=== PATIENT | male | born 1950 | race Caucasian/White ===

== ENCOUNTER → 2021-06-25 | Outpatient (CLI) | payer MEDICARE ==
[2021-06-25 14:52] LABS: Partial Thromboplastin Time 27.4 sec (22.0-30.0); Prothrombin Time 11.3 sec (9.0-12.0)
[2021-06-25 14:53] LABS: Amorphous Sediment,Urine Few /hpf; Appearance,Urine Cloudy (Clear); Bilirubin,Urine Negative (Negative); Blood,Urine Negative (Negative); Color,Urine Yellow; Glucose,Urine (UA) Negative (Negative); Ketones,Urine Negative (Negative); Leukocyte Esterase,Urine Negative (Negative); Mucus,Urine Rare /hpf; Nitrite,Urine Negative (Negative); PH, Urine 5.5 (5.0-8.0); Protein,Urine Trace (Negative); RBC,Urine 2 /hpf (0-5); Specific Gravity,Urine 1.018 (1.001-1.035); Urobilinogen,Urine <2.0 mg/dL (<2.0); WBC,Urine 3 /hpf (0-5)
[2021-06-25 17:56] LABS: HCT 48.6 % (39.6-50.0); HGB 15.7 g/dL (13.0-17.0); MCH 29.5 pg (27.0-32.0); MCHC 32.3 g/dL (32.0-37.0); MCV 91.2 fL (80.0-97.0); Mean Platelet Volume 11.1 fL (9.5-12.2); Platelet Count 191 X 10*3/uL (140-440); RBC 5.33 X 10*6/uL (4.40-5.60); RDW 13.2 % (11.5-14.5); WBC 7.49 X 10*3/uL (4.50-10.00)
[2021-06-25 18:06] LABS: African American GFR (CKD) 46.7 (60.0-200.0); Albumin 4.1 g/dL (3.8-4.9); Albumin/Globulin Ratio 1.52 (1.60-3.17); Anion Gap 11.5 mmol/L (10.00-18.00); BUN/Creat Ratio 10.29 Ratio (12.00-20.00); Blood Urea Nitrogen 17.5 mg/dL (9.0-27.0); Calcium 8.8 mg/dL (8.7-10.3); Carbon Dioxide 22.5 mmol/L (20.0-27.5); Globulin 2.7 g/dL (1.6-3.3); Non-African American GFR(CKD) 40.3 (60.0-200.0); Potassium 4.3 mmol/L (3.5-5.5); Total Bilirubin 0.6 mg/dL (0.30-1.20); Total Protein 6.8 g/dL (6.2-8.2)
== END | disposition home or self-care (01) ==
LOC: LABPAT 14:08
PROVIDERS: ATTEND Orthopaedic Surgery
DX: Z01.818 Encounter for other preprocedural examination (principal); I49.3 Ventricular premature depolarization; R94.31 Abnormal electrocardiogram [ECG] [EKG]
CPT/HCPCS: 80053; 81001; 85027; 85610; 85730; 87070; 93005

== ENCOUNTER → 2021-07-02 | Outpatient (CLI) | payer MEDICARE | END | disposition home or self-care (01) | LOC: LABWHC1 10:52 | PROVIDERS: ATTEND Orthopaedic Surgery | DX: Z96.641 Presence of right artificial hip joint (principal); M25.551 Pain in right hip; T84.84XD Pain due to internal orthopedic prosthetic devices, implants and grafts, subsequent encounter; M17.11 Unilateral primary osteoarthritis, right knee; Y82.9 Unspecified medical devices associated with adverse incidents | CPT/HCPCS: 36415; 83036 ==

== ENCOUNTER 2021-07-03 06:38 | Inpatient (IN) | payer MEDICARE ==
[2021-06-28 10:09] VITALS: BMI 29.0
[~2021-07-03 06:38] MED LIST: ACETAMINOPHEN TAB 500 MG TAB PO PRN; DEXAMETHASONE SOD PHOSPHATE 10 MG/ML 1 ML VIAL IV PRN; DOCUSATE 100 MG CAP PO PRN; FAMOTIDINE 20 MG/2 ML VIAL IVP PRN; KETOROLAC 15 MG/ML 1 ML VIAL IVP PRN; ONDANSETRON 4 MG/2 ML VIAL IVP PRN; TRANEXAMIC ACID 1,000 MG in SODIUM CHLORIDE 0.9% 100 ML IVPB PRN; VANCOMYCIN 1,000 MG in SODIUM CHLORIDE 0.9% 250 ML IVPB PRN; oxyCODONE ER 10 MG TAB.ER.12H PO PRN
[2021-07-03] MEDS ORDERED: ONDANSETRON 4 MG/2 ML VIAL IVP ONE (06:49)
[2021-07-03] MEDS ORDERED: LIDOCAINE 1% (10MG/ML) FOR IV START INTRADERMA PRN (06:49)
[2021-07-03] MEDS ORDERED: DEXAMETHASONE SOD PHOSPHATE 4 MG/ML 1 ML VIAL IV ONE (06:49)
[2021-07-03] MEDS ORDERED: HYDROmorphone 0.5 MG/0.5 ML SYRINGE IVP PRN ×3 (07:00→11:06)
[2021-07-03] MEDS ORDERED: TRANEXAMIC ACID 1,000 MG in SODIUM CHLORIDE 0.9% 100 ML IVPB ONE (07:26)
[2021-07-03] MEDS: LACTATED RINGERS 1,000 ML IV SCH (07:41)
[2021-07-03 07:47] LABS: Glucose,Whole Blood 120 mg/dL (75-99)
[2021-07-03] MEDS ORDERED: ROCURONIUM 10 MG/ML (5 ML VIAL) IV ONE (08:28)
[2021-07-03] MEDS ORDERED: ePHEDrine 50 MG/ML 1 ML VIAL ONE (08:28)
[2021-07-03] MEDS ORDERED: SUCCINYLCHOLINE CHLORIDE 100 MG/5 ML SYR IV ONE (08:28)
[2021-07-03] MEDS ORDERED: NEOSTIGMINE 1 MG/ML 10 ML VIAL ONE (08:28)
[2021-07-03] MEDS ORDERED: HEPARIN SODIUM,PORCINE 10,000 UNIT/ML 1 ML VIAL ONE (08:28)
[2021-07-03] MEDS ORDERED: SODIUM CHLORIDE 0.9% IRRIG 1,000 ML BTL IRRIGATION ONE (08:28)
[2021-07-03] MEDS ORDERED: PROPOFOL 10 MG/ML 20 ML VIAL IV ONE (08:28)
[2021-07-03] MEDS ORDERED: fentaNYL (PF) 50 MCG/ML 2 ML AMP ONE (08:28)
[2021-07-03] MEDS ORDERED: MIDAZOLAM 2 MG/2 ML VIAL ONE (08:28)
[2021-07-03] MEDS ORDERED: GLYCOPYRROLATE 0.2 MG/ML 2 ML VIAL ONE (08:28)
[2021-07-03] MEDS ORDERED: SODIUM CHLORIDE 0.9% 100 ML BAG ONE (08:28)
[2021-07-03] MEDS ORDERED: LIDOCAINE 1% INJ 10MG/ML (20 ML MDV) ONE (08:28)
[2021-07-03] MEDS ORDERED: TRANEXAMIC ACID 1,000 MG/10 ML VIAL ONE (08:28)
[2021-07-03] MEDS: ROPIVACAINE/EPI/CLONIDINE/KET 50 ML SYRINGE MISCELLANE PRN ×2 (09:17→10:14)
--- NOTE | 2021-07-03 10:37 | FL ---
Fluoroscopy HISTORY: Hip replacement 36 seconds fluoroscopy time supplied to the referring clinician. 7 intraoperative C-arm images docum ent the procedure. See dictated report from orthopedic surgery.
[2021-07-03] MEDS ORDERED: LACTATED RINGERS 1,000 ML IV ONE (11:01)
[2021-07-03] MEDS ORDERED: NALOXONE 0.4 MG/ML 1 ML VIAL IV PRN (11:06)
[2021-07-03] MEDS ORDERED: hydrOXYzine pamoate 25 MG CAP PO PRN (11:06)
[2021-07-03] MEDS ORDERED: HYDROcodone/APAP 5-325MG 1 EACH TAB PO PRN ×2 (11:06)
[2021-07-03] MEDS ORDERED: ONDANSETRON 4 MG/2 ML VIAL IVP PRN (11:06)
[2021-07-03] MEDS ORDERED: HYDROmorphone 0.2 MG/1 ML SYRINGE IVP PRN (11:06)
--- NOTE | 2021-07-03 11:11 | P.OP ---
Date of Procedure: 07/03/21 Preoperative Diagnosis: 1. Painful right hip hemiarthroplasty 2. Coronary artery disease 3. Type 2 diabetes 4. Chronic renal insufficiency Postoperative Diagnosis: 1. Painful right hip hemiarthroplasty with progressive acetabular degenerative changes 2. Coronary artery disease 3. Type 2 diabetes 4. Chronic renal insufficiency Procedure(s) Performed: 1. Conversion of right hip hemiarthroplasty to total hip arthroplasty 2. Application of negative pressure incisional wound VAC, right hip 15 cm Implants: 1. [place] Trident II multi hole revision cup, 52-mm 2. MDM 42 OD, 22 ID +0 neck Anesthesia: GETA Surgeon: Diaz Heard Heeler #1: Garrett Pham Estimated Blood Loss (ml): 300 IV fluids (ml): 1,200 Pathology: none sent Condition: stable Disposition: PACU Indications for Procedure: The patient is a very pleasant 70-year-old male with several chronic well- controlled medical problems including coronary artery disease, chronic renal insufficiency, and type 2 diabetes who sustained a displaced right femoral neck fracture in 2017 that was managed an outside hospital with a hemiarthroplasty. The patient has had progressively worsening groin and buttock pain since that time. He is very active and finds that his groin and buttock pain limits his mobility. Clinically he had significant pain with passive range of motion of his hip and x-rays showed degenerative changes within the acetabulum from erosion of the hemiarthroplasty implant. He also has symptomatic knee arthritis. We discussed continued nonsurgical treatment versus surgery. The patient would like to proceed with a conversion of his hemiarthroplasty to total hip replacement. The stem appears to be well fixed and well aligned so my recommendation was to leave the stem and place and place a socket. The patient was seen and cleared for surgery. His hemoglobin A1c was less than 7. I had a long discussion with the patient in the office on the potential risks and complications of an elective total hip replacement through a direct anterior approach. Risks discussed include, but are certainly not limited to, risks from anesthesia, superficial infection requiring local wound care or antibiotics, nadeen p damon-prosthetic joint infection and the treatment required to eradicate infection, intraoperative fracture, postoperative periprosthetic fracture, damage to local blood vessels or nerves particularly the lateral femoral cutaneous nerve, delayed wound healing requiring local wound care or possibly surgical debridement, hip dislocation, leg length discrepancy, soft tissue irritation around the total hip implant such as iliopsoas tendinitis or trochanteric bursitis, wear and osteolysis from the implants, squeaking or audible noises, groin pain, thigh pain, heterotopic ossification, stiffness, a septic loosening of the implants, dissatisfaction with surgical outcome, need for revision surgery, DVT, PE, swelling of the operative extremity, acute coronary event, stroke, failure to thrive, and possibly loss of life or limb. The patient understands that while these are the most common complications after an elective hip replacement there are certainly other less common complications possible. They were given ample time to ask questions regarding the potential complications of a hip replacement. Following our discussion the patient provided their verbal and written consent to go forward with an elective total hip replacement. The patient has he is at a higher risk of having a complication due to his medical issues and this being a revision. He provided verbal and written to go forward with revision surgery acknowledging the previously mentioned risks and other less common risks. Operative Findings: There is no sign of deep infection. There is severe degenerative changes within the acetabulum with complete loss of articular cartilage. Description of Procedure: The patient was identified in the preoperative holding area and the correct hip was marked with my initials. I reviewed the procedure and consent with the patient. All of their questions were answered. The patient was then brought back into the operating room by anesthesia. While on the [facility] anesthesia was administered by the anesthesia team. Preoperative antibiotics and tranexamic acid were also given. After the patient was under anesthesia I examined their ankles to determine their preoperative leg length discrepancy. The skin over the anterior aspect of the hip was shaved to remove hair over the site of planned incision. Both feet and ankles were padded with webril and boots for the [place] were applied. The patient was then carefully transferred onto the [place] table. A perineal post was immediately placed. The arms were placed on arm hol ders and were well-padded. Both boots were secured to the spars on the [place] table. The patient was positioned so that the pelvis was centered over the post. Nonsterile drapes were applied. A timeout was performed identifying the correct patient, operative extremity, and procedure. At this point fluoroscopy was brought in to take preoperative images of the pelvis and operative hip. Using the standing AP pelvis from the office as a template, a comparable image was obtained with fluoroscopy. A metallic bar was used to create a bi-ischial line for use as a reference to leg length adjustments during the procedure. Global offset was also measured on both the operative and nonoperative leg. Fluoroscopy was then brought out and a pre-scrub using a chlorhexidine scrub brush was performed. The operative limb was then prepped and draped in the standard sterile fashion. An anterior longitudinal incision was made lateral and distal to the ASIS. The skin and subcutaneous tissues were incised sharply. The underlying tensor fascia was identified and incised in its midportion. The fascia was dissected free from the underlying muscle and the muscle belly was retracted. A blunt tipped cobra retractor was placed over the superior neck under the muscle fibers of the gluteus minimus. The deep enveloping fascia of the tensor was incised. The anterior leash of vessels were then identified and cauterized. The fascia between the rectus and the capsule was then incised and the pre-capsular fat was excised. A second Cobra was placed inferior to the neck. The interval between the rectus and iliocapsularis and the hip capsule was developed and a retractor was placed carefully over the anterior rim of the acetabulum. A T-shaped anterior capsulotomy was performed. There was no sign of purulence or infection. Longitudinal traction was applied to the table and the femoral head was knocked off the trunnion with a bone tamp and mallet. Traction was released and the prosthetic femoral head was removed. Retractors were placed circumferentially exposing the acetabulum. We then circumferentially debrided the acetabulum free of labrum and osteophytes. The pulvinar was removed to fully visualize the cotyloid fossa. The acetabulum appeared severely arthritic. We then sequentially reamed to achieve peripheral fit and excellent bleeding subchondral bone. The socket was thoroughly irrigated. The acetabular component was impacted into the appropriate position using fluoroscopy to guide version, inclination, and depth of insertion taking care to have a comparable image of the AP pelvis to the standing image taken in the office. An excellent press-fit was achieved and final position was confirmed using fluoroscopy. The press fit was augmented with bony cancellus dome screws. The liner was then impacted into the socket. Attention was then turned to the femur. The femur was exposed with minimal capsular release and a trial head for dual mobility construct was applied and the hip was atraumatically reduced under direct visualization. External rotation to 90 was performed to assess stability. Fluoroscopy was brought in. An AP of the pelvis was then obtained and matched to the preoperative image taken. A bi-ischial bar was then placed and measurements were taken to assess changes in length and offset. The hip was then carefully dislocated, the proximal femur was exposed, and the trial implants were removed. The trunnion was cleansed and the final head was tapped into place to engage the [place] taper. The acetabulum was irrigated and visualized to be free of debris. The hip was carefully reduced. Stability was checked clinically with external rotation to 90 and there was no evidence of instability. Final fluoroscopic images were taken. The wound was then thoroughly irrigated and soaked with a dilute Betadine rinse for 3 minutes. 3 L of sterile saline was irrigated through the wound using pulsatile lavage. Local anesthetic cocktail was injected into the soft tissues around the surgical field. A deep drain was placed. The wound was then closed in layers. A sterile Prevena wound VAC dressing was placed over the surgical incision and drain site due to this being a revision in the patient having chronic medical issues including chronic renal insufficiency and diabetes. The drapes were taken down and the patient was carefully transferred off of the [place] table. Following removal of the boots the leg lengths felt acceptable. The patient was then taken to recovery room having tolerated the procedure well. Garrett Pham PA-C was required as a skilled office manager executive assistant for patient positioning, surgical exposure, retraction, placement of implants, and closure of the surgical wound. PLAN: The patient can weight-bear as tolerated on the operative extremity. 2 doses of postoperative antibiotics in 2 weeks of oral doxycycline for prophylaxis given this being a revision procedure. DVT prophylaxis with aspirin 81 mg twice a day based on preoperative risk stratification and he can resume his eloquence tomorrow. Physical therapy for gait training. Discontinue drain postoperative day #1 if output is less than 100 mL per shift.
[2021-07-03 11:37] LABS: Glucose,Whole Blood 167 mg/dL (75-99)
--- NOTE | 2021-07-03 13:54 | P.CONS ---
History of Present Illness - Reason for Consult Consult date: 07/03/21 Medical management - Chief Complaint Status post right hip hemiarthroplasty - History of Present Illness Patient is a 70-year-old male with a known history of coronary artery disease status post CABG, mitral valve replacement, hypertension, diabetes type 2 currently diet controlled, hyperlipidemia, osteoarthritis, obstructive sleep apnea triple-vessel, history of renal stones, gastric bypass and previous history of smoking was admitted to the hospital for elective Rt hip hemiarthroplasty. Patient underwent surgery on 07/03/2021. Tolerated the procedure very well. Postoperatively patient's blood pressure went down to 109/55. Currently saturating well on room air. Denies any complaints of dizziness or lightheadedness. No chest pain or shortness breath. Left hip surgical site with wound VAC and drain.. Denies any complaints of fever or chills. No nausea vomiting abdominal pain or diarrhea. COVID-19 PCR not detected. Blood sugar is elevated this afternoon with level 235 Review of Systems Constitutional: Patient denies any fever or chills . No generalized weakness or weight loss. Abdomen: Patient denied nausea vomiting and diarrhea and abdominal pain. Cardiovascular: Patient denies any chest pain or short of breath no palpitations. Respiratory: patient denied any cough or sputum production. No shortness of breath Neurologic: Patient denied any numbness or tingling headache. Musculoskeletal: Patient denies any complaints of joint swelling or deformity. Skin: Negative Psychiatric: Negative Endocrine: No heat or cold intolerance. No recent weight gain. Genitourinary: No dysuria or hematuria. All other 14 point ROS negative except the above Past Medical History Past Medical History: Atrial Fibrillation, Coronary Artery Disease (CAD), Diabetes Mellitus, Hyperlipidemia, Hypertension, Osteoarthritis (OA), Renal Disease, Sleep Apnea/CPAP/BIPAP Additional Past Medical History / Comment(s): doesn't use CPAP, kidney stones, type 2 diabetic-diet controlled History of Any Multi-Drug Resistant Organisms: None Reported Past Surgical History: Bariatric Surgery, Cardiac Valve Replacement, Cholecystectomy, Coronary Bypass/CABG, Hernia Repair, Joint Replacement, Orthopedic Surgery Additional Past Surgical History / Comment(s): mitral valve replaced x2, triple bypass, left nephrostolithotomy & lithotripsy, right hip replaced, gastric bypass, right knee arthroscopies, colonoscopies Past Anesthesia/Blood Transfusion Reactions: No Reported Reaction Smoking Status: Former smoker - Past Family History Mother Family Medical History: No Reported History Medications and Allergies Home Medications Medication Instructions Recorded Confirmed Type Apixaban [Eliquis] 5 mg PO BID 06/28/21 07/03/21 History Aspirin [Adult Low Dose Aspirin EC] 81 mg PO DAILY 06/28/21 06/28/21 History Famotidine [Pepcid] 40 mg PO HS 06/28/21 06/28/21 History Ferrous Sulfate [Feosol] 325 mg PO DAILY 06/28/21 07/03/21 History L.acidoph,Paracasei, B.lactis 2 each PO DAILY 06/28/21 07/03/21 History [Probiotic] Metoprolol Tartrate [Lopressor] 50 mg PO BID 06/28/21 06/28/21 History [place]-3 Fatty Acids/Fish Oil [Fish 1 each PO DAILY 06/28/21 07/03/21 History Oil 1,000 mg Softgel] PARoxetine [Paxil] 20 mg PO HS 06/28/21 06/28/21 History Pyridostigmine [place] [Mestinon] 60 mg PO BID 06/28/21 06/28/21 History Rosuvastatin [Crestor] 20 mg PO HS 06/28/21 06/28/21 History amLODIPine [Norvasc] 5 mg PO HS 06/28/21 06/28/21 History Doxycycline Monohydrate 100 mg PO BID 14 Days #28 cap 07/03/21 Rx Allergies Allergy/AdvReac Type Severity Reaction Status Date / Time No Known Allergies Allergy Verified 06/28/21 09:21 Physical Exam Vitals: Vital Signs Temp Pulse Pulse Resp BP BP BP 07/03/21 13:15 80 16 118/57 07/03/21 13:00 80 16 102/54 07/03/21 12:30 82 16 109/55 07/03/21 12:00 85 16 121/69 07/03/21 11:45 88 16 124/61 07/03/21 11:30 92 16 150/65 07/03/21 11:15 92 16 141/67 07/03/21 11:14 97.3 F L 99 14 157/82 07/03/21 07:27 97.6 F 66 16 135/68 Pulse Ox 07/03/21 13:15 95 07/03/21 13:00 95 02/02/22 12:30 95 07/03/21 12:00 95 07/03/21 11:45 95 07/03/21 11:30 97 07/03/21 11:15 98 07/03/21 11:14 98 07/03/21 07:27 96 Intake and Output 07/02/21 07/03/21 07/03/21 22:59 06:59 14:59 Intake Total 1900 Output Total 300 Balance 1600 Intake: IV 1900 Output: Estimated Blood Loss 300 Other: Weight 89.9 kg PHYSICAL EXAMINATION: Patient is lying in the bed comfortably, no acute distress, awake alert and oriented.. HEENT: Normocephalic. Neck is supple. Pupils reactive. Nostrils clear. Oral cavity is moist. Neck reveals no JVD, carotid bruits, or thyromegaly. CHEST EXAMINATION: Trachea is central. Symmetrical expansion. Lung renee clear to auscultation and percussion. CARDIAC: Normal S1, S2 with no gallops. No murmurs ABDOMEN: Soft. Bowel sounds normal. No organomegaly. No abdominal bruits. Extremities: reveal no edema. No clubbing or cyanosis Neurologically awake, alert, oriented x3 with well-coordinated movements. No focal deficits noted Skin: No rash or skin lesions. Psychiatric: Cooperative. Nonsuicidal Musculoskeletal: No joint swelling or deformity. Right hip surgical site with wound VAC present. Results Labs: Abnormal Lab Results - Last 24 Hours (Table) 07/03/21 07/03/21 Range/Units 07:36 11:36 POC Glucose (mg/dL) 120 H 167 H (75-99) mg/dL Assessment and Plan Assessment: Status post right hemiarthroplasty postoperative day 0 Postoperative hypotension expected. Improved now. Hyperglycemia Diabetes type 2 diet controlled at home. Chronic kidney disease Coronary artery disease with history of CABG History of mitral valve replacement. Paroxysmal atrial fibrillation on anticoagulation with Eliquis Iron deficiency anemia Osteoarthritis Previous history of smoking History of renal stones and left nephrostolithotomy, lithotripsy. DVT prophylaxis Plan: Patient will be continued current pain medications, bowel regimen. Encourage incentive spirometry and ambulation. Blood pressure medications will be on hold today. Continue with aspirin and Eliquis once cleared by surgical team. Continue with home medications and follow-up closely. Follow-up CBC, BMP and A1c levels tomorrow. Further recommendations based on clinical course. Thank you for your consult. Time with Patient: Greater than 30
[2021-07-03 16:34] LABS: Glucose,Whole Blood 235 mg/dL (75-99)
[2021-07-03] MEDS: INSULIN ASPART (NovoLOG) 100 UNIT/ML VIAL SQ SCH ×2 (16:52→21:38)
[2021-07-03] MEDS ORDERED: FAMOTIDINE 20 MG TAB PO SCH (21:00)
[2021-07-03] MEDS ORDERED: SENNOSIDES-DOCUSATE SODIUM 1 EACH TAB PO SCH (21:00)
[2021-07-03] MEDS ORDERED: ATORVASTATIN 20 MG TAB PO SCH (21:00)
[2021-07-03] MEDS ORDERED: PARoxetine 20 MG TAB PO SCH (21:00)
[2021-07-03] MEDS ORDERED: MELATONIN 5 MG TABLET PO SCH (21:00)
[2021-07-03 21:18] LABS: Glucose,Whole Blood 224 mg/dL (75-99)
[2021-07-03] MEDS: METOPROLOL TARTRATE 50 MG TAB PO SCH (21:39)
[2021-07-03] MEDS: PYRIDOSTIGMINE 60 MG TAB PO SCH (21:44)
[2021-07-04 03:59] LABS: Basophils % (A) 0 %; Eosinophils # (A) 0.1 k/uL (0-0.7); Eosinophils % (A) 1 %; HCT 42.3 % (39.0-53.0); HGB 13.4 gm/dL (13.0-17.5); Lymphocytes # (A) 1.6 k/uL (1.0-4.8); Lymphocytes % (A) 11 %; MCH 30.5 pg (25.0-35.0); MCHC 31.7 g/dL (31.0-37.0); MCV 96.1 fL (80.0-100.0); Mean Platelet Volume 8.3; Monocytes % (A) 7 %; Neutrophils # (A) 11.6 k/uL (1.3-7.7); Neutrophils % (A) 80 %; Platelet Count 128 k/uL (150-450); RDW 13.3 % (11.5-15.5); WBC 14.5 k/uL (3.8-10.6)
[2021-07-04 04:12] LABS: African American GFR (CKD) 43 (>60 ml/min/1.73 sqM); Anion Gap 10 mmol/L; Blood Urea Nitrogen 25 mg/dL (9-20); Calcium 8.3 mg/dL (8.4-10.2); Carbon Dioxide 16 mmol/L (22-30); Chloride 109 mmol/L (98-107); Glucose 151 mg/dL (74-99); Non-African American GFR(CKD) 37 (>60 ml/min/1.73 sqM); Potassium 3.6 mmol/L (3.5-5.1); Sodium 135 mmol/L (137-145)
[2021-07-04 07:11] LABS: Glucose,Whole Blood 162 mg/dL (75-99)
[2021-07-04] MEDS: PYRIDOSTIGMINE 60 MG TAB PO SCH (07:49)
[2021-07-04] MEDS: METOPROLOL TARTRATE 50 MG TAB PO SCH (07:49)
[2021-07-04] MEDS: INSULIN ASPART (NovoLOG) 100 UNIT/ML VIAL SQ SCH ×2 (07:49→11:33)
[2021-07-04] MEDS: LACTATED RINGERS 1,000 ML IV SCH (08:33)
[2021-07-04] MEDS ORDERED: NON FORMULARY DRUG (Omega-3 Fatty Acids/Fish Oil [Fish Oil 1,000 Mg Softgel] 1 EACH Capsul PO SCH (09:00)
[2021-07-04] MEDS ORDERED: APIXABAN 5 MG TAB PO SCH (09:00)
[2021-07-04 09:03] VITALS: BP 115/59; PULSE 77; RESP 19; TEMP 97.8
[2021-07-04] MEDS ORDERED: HYDROmorphone 0.2 MG/1 ML SYRINGE IVP PRN (11:59)
[2021-07-04] MEDS ORDERED: HYDROmorphone 1 MG/ML 1 ML SYRINGE IVP PRN (11:59)
--- NOTE | 2021-07-04 12:00 | P.DS ---
Providers Date of admission: 07/03/21 06:38 Expected date of discharge: 07/04/21 Attending physician: Diaz Heard Consults: 07/03/21 11:06 Consult Physician Routine Consulting Provider: Anand Medley Consult Reason/Comments: medial management Do you want consulting provider notified?: Yes Primary care physician: Twila Marino MD Hospital Course: This is a 70-year-old male who has been followed in the office by Dr. Heard for right hip pain. Patient has known history of displaced right femoral neck fracture in 2017 that was treated at an outside hospital with a right hip hemiarthroplasty. Patient continued to experience pain in the right hip. After discussion and consideration patient elects to proceed with surgery. Patient underwent a conversion of right hip hemiarthroplasty to total hip arthroplasty on 07/03/[address] Heard. The patient is seen preoperatively by PCP Dr. Marino, and settlement technician Dr. Saucedo, and cleared for surgery. Patient is admitted to [facility] on 07/03/21 for conversion of right hip hemiarthroplasty to total hip arthroplasty. The procedures performed without complication or sequelae. The patient is doing well postoperatively. Labs and vital signs are stable on day of discharge. Patient is seen and examined bedside this morning. He states he is having no pain in the right hip, and his hip feels better than before surgery. He did well with physical therapy. He is ambulating with a walker with minimal assistance. Per nursing, his drain output is 80mL per shift. Patient is doing well and has no complaints. He denies chest pain, shortness of breath, nausea, vomiting, numbness or tingling of the right lower extremity. He is comfortable being discharged home today. On examination, patient is sitting up in bed in no apparent distress. He is alert and orientated x3. On inspection of the right hip, there is a Prevena wound vac in place which appears to have a good seal at this time. There is mild swelling of the thigh, the thigh is soft and compressible. Hemovac drain in place. Motor and sensory function intact right lower extremity. Right lower extremity is warm and well perfused with brisk capillary refill distally. Calf is soft and non-tender to palpation. Hemovac drain was removed bedside this morning and a dressing was applied over the drain site. Patient is discharged to home with home health services in good condition, pending medical clearance today. He will follow-up in the office in one week with Dr. Heard. Please see [facility] rec for accurate list of discharge me dications. Plan - Discharge Summary Discharge Rx Participant: Yes New Discharge Prescriptions: New HYDROcodone/APAP 5-325MG [[place] 5-325] 1 tab PO Q6HR PRN 7 Days #28 tab PRN Reason: Pain Doxycycline Monohydrate 100 mg PO BID 14 Days #28 cap Docusate [Colace] 100 mg PO BID #60 capsule Omeprazole 40 mg PO DAILY 30 Days #30 cap No Action Famotidine [Pepcid] 40 mg PO HS PARoxetine [Paxil] 20 mg PO HS Metoprolol Tartrate [Lopressor] 50 mg PO BID Apixaban [Eliquis] 5 mg PO BID Pyridostigmine [place] [Mestinon] 60 mg PO BID [place]-3 Fatty Acids/Fish Oil [Fish Oil 1,000 mg Softgel] 1 each PO DAILY L.acidoph,Paracasei, B.lactis [Probiotic] 2 each PO DAILY Aspirin [Adult Low Dose Aspirin EC] 81 mg PO DAILY amLODIPine [Norvasc] 5 mg PO HS Ferrous Sulfate [Feosol] 325 mg PO DAILY Rosuvastatin [Crestor] 20 mg PO HS Discharge Medication List Apixaban [Eliquis] 5 mg PO BID 06/28/21 [History] Aspirin [Adult Low Dose Aspirin EC] 81 mg PO DAILY 06/28/21 [History] Famotidine [Pepcid] 40 mg PO HS 06/28/21 [History] Ferrous Sulfate [Feosol] 325 mg PO DAILY 06/28/21 [History] L.acidoph,Paracasei, B.lactis [Probiotic] 2 each PO DAILY 06/28/21 [History] Metoprolol Tartrate [Lopressor] 50 mg PO BID 06/28/21 [History] [place]-3 Fatty Acids/Fish Oil [Fish Oil 1,000 mg Softgel] 1 each PO DAILY 06/28/21 [History] PARoxetine [Paxil] 20 mg PO HS 06/28/21 [History] Pyridostigmine [place] [Mestinon] 60 mg PO BID 06/28/21 [History] Rosuvastatin [Crestor] 20 mg PO HS 06/28/21 [History] amLODIPine [Norvasc] 5 mg PO HS 06/28/21 [History] Doxycycline Monohydrate 100 mg PO BID 14 Days #28 cap 07/03/21 [Rx] Docusate [Colace] 100 mg PO BID #60 capsule 07/04/21 [Rx] HYDROcodone/APAP 5-325MG [[place] 5-325] 1 tab PO Q6HR PRN 7 Days #28 tab 07/04/21 [Rx] Omeprazole 40 mg PO DAILY 30 Days #30 cap 07/04/21 [Rx] Follow up Appointment(s)/Referral(s): [facility] [[facility]-STAFF] - As Needed ([facility] will call you to schedule the time for your in home physical therapy and nursing visits. Your first visit will be on 07/06/2021.) Diaz Heard MD [Medical Doctor] - 1 Week Activity/Diet/Wound Care/Special Instructions: Weight bear as tolerated on operative leg with a walker. Keep Prevena wound vac in place until follow-up in the office. Take pain medications as prescribed. Resume aspirin and Eliquis for DVT prophylaxis. Follow-up in the office with Dr. Heard in one week for wound vac removal and incision check. Call the office with any questions or concerns, Discharge Disposition: HOME WITH HOME HEALTH SERVICES
[2021-07-04 12:04] LABS: Glucose,Whole Blood 144 mg/dL (75-99)
== END 2021-07-04 14:41 | disposition home health service (06) | DRG 468 ==
LOC: 2ORMAIN 06:38 → 4SSUR 12:56 → EDSTATUS 13:00
PROVIDERS: ADMIT Orthopaedic Surgery; ATTEND Orthopaedic Surgery
PROC: 0SP90JZ Removal of Synthetic Substitute from Right Hip Joint, Open Approach (ICD-10-PCS; 2021-07-03)
PROC: 8E0YXBF Computer Assisted Procedure of Lower Extremity, With Fluoroscopy (ICD-10-PCS; 2021-07-03)
PROC: 2W1NX6Z Compression of Right Upper Leg using Pressure Dressing (ICD-10-PCS; 2021-07-03)
PROC: 0SR90JA Replacement of Right Hip Joint with Synthetic Substitute, Uncemented, Open Approach (ICD-10-PCS; principal; 2021-07-03 08:30)
DX: T84.84XA Pain due to internal orthopedic prosthetic devices, implants and grafts, initial encounter (principal); I12.9 Hypertensive chronic kidney disease with stage 1 through stage 4 chronic kidney disease, or unspecified chronic kidney disease; M17.11 Unilateral primary osteoarthritis, right knee; I25.10 Atherosclerotic heart disease of native coronary artery without angina pectoris; I48.0 Paroxysmal atrial fibrillation; Z20.822 Contact with and (suspected) exposure to COVID-19; N18.9 Chronic kidney disease, unspecified; D50.9 Iron deficiency anemia, unspecified; E11.22 Type 2 diabetes mellitus with diabetic chronic kidney disease; E11.65 Type 2 diabetes mellitus with hyperglycemia; E78.5 Hyperlipidemia, unspecified; G47.33 Obstructive sleep apnea (adult) (pediatric); Y79.2 Prosthetic and other implants, materials and accessory orthopedic devices associated with adverse incidents; Z79.01 Long term (current) use of anticoagulants; Z87.19 Personal history of other diseases of the digestive system; Z98.84 Bariatric surgery status; Z87.442 Personal history of urinary calculi; Z95.2 Presence of prosthetic heart valve; Z79.82 Long term (current) use of aspirin; Z79.899 Other long term (current) drug therapy; Z87.891 Personal history of nicotine dependence; Z95.1 Presence of aortocoronary bypass graft
CPT/HCPCS: 36415; 73501; 80048; 83036; 85025; 86850; 86891; 86900; 86901; 87635

== ENCOUNTER 2021-07-12 08:30 | Emergency (ER) | payer MEDICARE ==
[2021-07-12 08:42] VITALS: TEMP 98.7
--- NOTE | 2021-07-12 09:33 | ED ---
General Adult HPI - General Chief complaint: Extremity Problem,Nontraumatic Stated complaint: extremity injury Time Seen by Provider: 07/12/21 08:35 Source: patient, EMS, RN notes reviewed, old records reviewed Mode of arrival: EMS Limitations: no limitations - History of Present Illness Initial comments: This is a 70-year-old male who presents to the emergency department from [facility] the patient had a hip revision surgery by Dr. Heard on July 03. Patient states last night his right groin and leg became really swollen and firm and causing quite a bit of pain. 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 Patient states he does not want any pain medicine currently because he is feeling much better. Denies any difficulty breathing shortness of breath. Patient denies any fever or chills. - Related Data Home Medications Medication Instructions Recorded Confirmed Apixaban [Eliquis] 5 mg PO BID 06/28/21 07/03/21 Aspirin [Adult Low Dose Aspirin EC] 81 mg PO DAILY 06/28/21 06/28/21 Famotidine [Pepcid] 40 mg PO HS 06/28/21 06/28/21 Ferrous Sulfate [Iron (65 MG 325 mg PO DAILY 06/28/21 07/03/21 Elemental)] L.acidoph,Paracasei, B.lactis 2 each PO DAILY 06/28/21 07/03/21 [Probiotic] Metoprolol Tartrate [Lopressor] 50 mg PO BID 06/28/21 06/28/21 [place]-3 Fatty Acids/Fish Oil [Fish 1 each PO DAILY 06/28/21 07/03/21 Oil 1,000 mg Softgel] PARoxetine [Paxil] 20 mg PO HS 06/28/21 06/28/21 Pyridostigmine [place] [Mestinon] 60 mg PO BID 06/28/21 06/28/21 Rosuvastatin [Crestor] 20 mg PO HS 06/28/21 06/28/21 amLODIPine [Norvasc] 5 mg PO HS 06/28/21 06/28/21 Previous Rx's Medication Instructions Recorded Doxycycline Monohydrate 100 mg PO BID 14 Days #28 cap 07/03/21 Docusate [Colace] 100 mg PO BID #60 capsule 07/04/21 HYDROcodone/APAP 5-325MG [[place] 1 tab PO Q6HR PRN 7 Days #28 tab 07/04/21 5-325] Omeprazole 40 mg PO DAILY 30 Days #30 cap 07/04/21 Allergies Allergy/AdvReac Type Severity Reaction Status Date / Time No Known Allergies Allergy Verified 06/28/21 09:21 Review of Systems ROS Statement: Those systems with pertinent positive or pertinent negative responses have been documented in the HPI. ROS Other: All systems not noted in ROS Statement are negative. Past Medical History Past Medical History: Atrial Fibrillation, Coronary Artery Disease (CAD), Diabetes Mellitus, Hyperlipidemia, Hypertension, Osteoarthritis (OA), Renal Disease, Sleep Apnea/CPAP/BIPAP Additional Past Medical History / Comment(s): doesn't use CPAP, kidney stones, type 2 diabetic-diet controlled History of Any Multi-Drug Resistant Organisms: None Reported Past Surgical History: Bariatric Surgery, Cardiac Valve Replacement, Cholecystectomy, Coronary Bypass/CABG, Hernia Repair, Joint Replacement, Orthopedic Surgery Additional Past Surgical History / Comment(s): mitral valve replaced x2, triple bypass, left nephrostolithotomy & lithotripsy, right hip replaced, gastric bypass, right knee arthroscopies, colonoscopies Past Anesthesia/Blood Transfusion Reactions: No Reported Reaction Past Psychological History: Anxiety, Depression Smoking Status: Former smoker Past Alcohol Use History: Rare Past Drug Use History: None Reported - Past Family History Mother Family Medical History: No Reported History General Exam - General Exam Comments Initial Comments: GENERAL: Patient is well-developed and well-nourished. Patient is nontoxic and well- hydrated and is in mild distress. ENT: Neck is soft and supple. No significant lymphadenopathy is noted. Oropharynx is clear. Moist mucous membranes. Neck has full range of motion without eliciting any pain. EYES: The sclera were anicteric and conjunctiva were pink and moist. Extraocular movements were intact and pupils were equal round and reactive to light. Eyelids were unremarkable. PULMONARY: Unlabored respirations. Good breath sounds bilaterally. No audible rales rhonchi or wheezing was noted. CARDIOVASCULAR: There is a regular rate and rhythm without any murmurs gallops or rubs. SKIN: Skin is clear with no lesions or rashes and otherwise unremarkable. NEUROLOGIC: Patient is alert and oriented x3. Cranial nerves II through XII are grossly intact. Motor and sensory are also intact. Normal speech, volume and content. Symmetrical smile. MUSCULOSKELETAL: Right Leg is significantly swollen. Refills equal bilaterally LYMPHATICS: No significant lymphadenopathy is noted PSYCHIATRIC: Normal psychiatric evaluation. Limitations: no limitations Course Vital Signs 07/12/21 08:34 Temperature 98.7 F Pulse Rate 73 Respiratory 18 Rate Blood Pressure 93/54 O2 Sat by Pulse 94 L Oximetry Medical Decision Making - Medical Decision Making After I saw the patient immediately called Dr. Heard and made him aware of the patient. He wanted vascular contact as I spoke with Dr. Callejas. I spoke with the [facility] and they did not accept the patient. Spoke with [facility] [facility] and they did accept the patient. Patient has good dorsal pedis pulses and is been stable throughout his stay - Lab Data Result diagrams: 07/12/21 10:07 Lab Results 07/12/21 Range/Units 10:07 WBC 10.8 H (3.8-10.6) k/uL RBC 3.63 L (4.30-5.90) m/uL Hgb 10.9 L (13.0-17.5) gm/dL Hct 34.3 L (39.0-53.0) % MCV 94.5 (80.0-100.0) fL MCH 30.0 (25.0-35.0) pg MCHC 31.7 (31.0-37.0) g/dL RDW 13.4 (11.5-15.5) % Plt Count 261 D (150-450) k/uL MPV 7.7 Neutrophils % 66 % Lymphocytes % 23 % Monocytes % 7 % Eosinophils % 1 % Basophils % 1 % Neutrophils # 7.2 (1.3-7.7) k/uL Lymphocytes # 2.4 (1.0-4.8) k/uL Monocytes # 0.8 (0-1.0) k/uL Eosinophils # 0.1 (0-0.7) k/uL Basophils # 0.1 (0-0.2) k/uL Disposition Clinical Impression: Femoral artery pseudo-aneurysm, right Disposition: TRANSFER TO PSYCH HOSP/UNIT Referrals: Twila Marino MD [Primary Care Provider] - 1-2 days Time of Disposition: 11:12
[2021-07-12 10:23] LABS: Basophils # (A) 0.1 k/uL (0-0.2); Basophils % (A) 1 %; Eosinophils # (A) 0.1 k/uL (0-0.7); Eosinophils % (A) 1 %; HCT 34.3 % (39.0-53.0); HGB 10.9 gm/dL (13.0-17.5); Lymphocytes # (A) 2.4 k/uL (1.0-4.8); Lymphocytes % (A) 23 %; MCHC 31.7 g/dL (31.0-37.0); MCV 94.5 fL (80.0-100.0); Mean Platelet Volume 7.7; Monocytes # (A) 0.8 k/uL (0-1.0); Monocytes % (A) 7 %; Neutrophils # (A) 7.2 k/uL (1.3-7.7); Neutrophils % (A) 66 %; RBC 3.63 m/uL (4.30-5.90); RDW 13.4 % (11.5-15.5); WBC 10.8 k/uL (3.8-10.6)
[2021-07-12 10:31] LABS: Platelet Count 261 k/uL (150-450)
[2021-07-12] MEDS ORDERED: SODIUM CHLORIDE 0.9% 1,000 ML IV ONE (10:40)
--- NOTE | 2021-07-12 10:47 | P.CNOR ---
History of Present Illness - [facility] Consult date: 07/12/21 History of present illness: The patient is a very pleasant 70 year old male with multiple medical problems who underwent a conversion of a painful right hip hemiarthroplasty to a total hip replacement last week. He was initially doing well, but developed very painful swelling in his right thigh last night. He went to an OSH where a CTA showed a bleeding pseudoaneurysm of the profunda femoris artery. He was transferred to our facility for further management. I evaluated him in the ED. At the time of my evaluation, he is complaining of mild discomfort in his right thigh. He is otherwise comfortable and has no other complaints. His right hip had been doing very well with minimal pain. He does take Eliquis which he has resumed taking after surgery. Past Medical History Past Medical History: Atrial Fibrillation, Coronary Artery Disease (CAD), Diabetes Mellitus, Hyperlipidemia, Hypertension, Osteoarthritis (OA), Renal Disease, Sleep Apnea/CPAP/BIPAP Additional Past Medical History / Comment(s): doesn't use CPAP, kidney stones, type 2 diabetic-diet controlled History of Any Multi-Drug Resistant Organisms: None Reported Past Surgical History: Bariatric Surgery, Cardiac Valve Replacement, Cholecystectomy, Coronary Bypass/CABG, Hernia Repair, Joint Replacement, Orthopedic Surgery Additional Past Surgical History / Comment(s): mitral valve replaced x2, triple bypass, left nephrostolithotomy & lithotripsy, right hip replaced, gastric bypass, right knee arthroscopies, colonoscopies Past Anesthesia/Blood Transfusion Reactions: No Reported Reaction Past Psychological History: Anxiety, Depression Smoking Status: Former smoker Past Alcohol Use History: Rare Past Drug Use History: None Reported - Past Family History Mother Family Medical History: No Reported History Medications and Allergies Home Medications Medication Instructions Recorded Confirmed Type Apixaban [Eliquis] 5 mg PO BID 06/28/21 07/03/21 History Aspirin [Adult Low Dose Aspirin EC] 81 mg PO DAILY 06/28/21 06/28/21 History Famotidine [Pepcid] 40 mg PO HS 06/28/21 06/28/21 History Ferrous Sulfate [Iron (65 MG 325 mg PO DAILY 06/28/21 07/03/21 History Elemental)] L.acidoph,Paracasei, B.lactis 2 each PO DAILY 06/28/21 07/03/21 History [Probiotic] Metoprolol Tartrate [Lopressor] 50 mg PO BID 06/28/21 06/28/21 History [place]-3 Fatty Acids/Fish Oil [Fish 1 each PO DAILY 06/28/21 07/03/21 History Oil 1,000 mg Softgel] PARoxetine [Paxil] 20 mg PO HS 06/28/21 06/28/21 History Pyridostigmine [place] [Mestinon] 60 mg PO BID 06/28/21 06/28/21 History Rosuvastatin [Crestor] 20 mg PO HS 06/28/21 06/28/21 History amLODIPine [Norvasc] 5 mg PO HS 06/28/21 06/28/21 History Doxycycline Monohydrate 100 mg PO BID 14 Days #28 cap 07/03/21 Rx Docusate [Colace] 100 mg PO BID #60 capsule 07/04/21 Rx HYDROcodone/APAP 5-325MG [[place] 1 tab PO Q6HR PRN 7 Days #28 tab 07/04/21 Rx 5-325] Omeprazole 40 mg PO DAILY 30 Days #30 cap 07/04/21 Rx Allergies Allergy/AdvReac Type Severity Reaction Status Date / Time No Known Allergies Allergy Verified 06/28/21 09:21 Physical Examination The patient is resting comfortably in his ED gurney. He is alert and able to answer questions. He appears in no obvious distress. A focused exam of the right LE was conducted. There is a clean dressing over the anterior aspect of his right hip. There is diffuse swelling and ecchymosis throughout his thigh. His thigh is swollen and firm, but compressible. There is minimal pain with PROM of the hip and knee. The patient is able to actively plantarflex his ankle and his toes. Sensation is intact to light touch in his foot. His foot is warm and well perfused. Results - Labs Labs: Abnormal Lab Results - Last 24 Hours (Table) 07/12/21 Range/Units 10:07 WBC 10.8 H (3.8-10.6) k/uL RBC 3.63 L (4.30-5.90) m/uL Hgb 10.9 L (13.0-17.5) gm/dL Hct 34.3 L (39.0-53.0) % H & H 07/12/21 Range/Units 10:07 Hgb 10.9 L (13.0-17.5) gm/dL Hct 34.3 L (39.0-53.0) % Result Diagrams: 07/12/21 10:07 Assessment and Plan Assessment: 1 week status post conversion of right painful hip hemiarthroplasty to total hip arthroplasty with right profunda femoris pseudoaneurysm. Plan: I evaluated the patient in the ED and he appears stable. I reviewed with imaging study and recommended a consult to vascular surgery. Dr. Callejas reviewed the case and imaging and recommended IR embolization. That is not available at our facility, so the patient will be transferred to another facility capable of performing an IR embolization. I discussed this with the patient and he understands. Dr. Renteria, the ED physician, will facilitate a transfer. The patient will need to follow-up with me in 1 week for a wound check. Time with Patient: Greater than 30
[2021-07-12] MEDS ORDERED: MORPHINE SULFATE 4 MG/ML SYRINGE IVP STA (12:03)
[2021-07-12 12:04] VITALS: BP 115/53; PULSE 75; RESP 14
== END 2021-07-12 11:47 ==
LOC: EC 08:30
DX: I72.4 Aneurysm of artery of lower extremity (principal); I48.91 Unspecified atrial fibrillation; I25.10 Atherosclerotic heart disease of native coronary artery without angina pectoris; E11.9 Type 2 diabetes mellitus without complications; E78.5 Hyperlipidemia, unspecified; I10 Essential (primary) hypertension; M19.90 Unspecified osteoarthritis, unspecified site; F41.9 Anxiety disorder, unspecified; F32.A Depression, unspecified; Z79.01 Long term (current) use of anticoagulants; Z79.82 Long term (current) use of aspirin; Z87.442 Personal history of urinary calculi; Z98.84 Bariatric surgery status; Z90.49 Acquired absence of other specified parts of digestive tract; Z95.1 Presence of aortocoronary bypass graft; Z87.891 Personal history of nicotine dependence
CPT/HCPCS: 99285; 96374; 96361; 36415; 85025; J2270

== ENCOUNTER → 2023-05-05 | Outpatient (CLI) | payer MEDICARE ==
[2023-05-05 15:00] LABS: Partial Thromboplastin Time 27.7 sec (22.0-30.0); Prothrombin Time 11.3 sec (10.0-12.5)
[2023-05-05 18:18] LABS: HCT 45.8 % (37.2-50.0); HGB 15.1 g/dL (12.0-17.0); MCH 30.1 pg (27.0-32.0); MCV 91.4 FL (80.0-97.0); Mean Platelet Volume 10.7 FL (9.5-12.2); NRBC Per 100 WBC 0 X 10*3/uL (0.00-0.01); Platelet Count 144 X 10*3/uL (140-440); RBC 5.01 X 10*6/uL (4.10-5.60); RDW 13.3 % (11.5-14.5); WBC 5.62 X 10*3/uL (4.50-10.00)
[2023-05-05 18:28] LABS: ALT 58 U/L (8-49); AST 66 U/L (13-35); Albumin 4.2 g/dL (3.8-4.9); Albumin/Globulin Ratio 1.91 Ratio (1.60-3.17); Alkaline Phosphatase 100 U/L (41-126); BUN/Creat Ratio 13.81 Ratio (12.00-20.00); Blood Urea Nitrogen 22.1 mg/dL (9.0-27.0); Chloride 104 mmol/L (96-109); Globulin 2.2 g/dL (1.6-3.3); Glucose 90 mg/dL (70-110); Potassium 4.5 mmol/L (3.5-5.5); Sodium 146 mmol/L (135-145); Total Bilirubin 0.8 mg/dL (0.3-1.2); Total Protein 6.4 g/dL (6.2-8.2)
[2023-05-05 21:34] LABS: Appearance,Urine Cloudy (Clear); Bilirubin,Urine Negative (Negative); Blood,Urine Negative (Negative); Color,Urine Yellow (Yellow); Ketones,Urine Negative (Negative); Nitrite,Urine Negative (Negative); PH, Urine 5.5
[2023-05-05 22:00] LABS: Bacteria,Urine None Seen (None Seen); Calcium Oxalate Crystals,Urine Present (None Seen)
== END | disposition home or self-care (01) ==
LOC: LABWHC1 12:47
PROVIDERS: ATTEND Orthopaedic Surgery
DX: Z01.812 Encounter for preprocedural laboratory examination (principal); E11.9 Type 2 diabetes mellitus without complications; M17.11 Unilateral primary osteoarthritis, right knee
CPT/HCPCS: 36415; 80053; 81001; 83036; 85027; 85610; 85730; 87070; 93005

== ENCOUNTER → 2023-05-05 | Outpatient (CLI) | payer MEDICARE ==
--- NOTE | 2023-05-05 14:42 | CT ---
EXAMINATION TYPE: CT right knee - [facility] Protocol DATE OF EXAM: 05/05/2023 COMPARISON: None HISTORY: pre-op right total knee CT DLP: [address] of the right lower extremity for [facility] protocol FINDINGS: Total right hip arthroplasty noted to be in place. Severe degenerative narrowing right knee joint spa ce involving all compartments. No evidence of fracture or dislocation. Joint effusion noted. Bony spu r identified. Right ankle is intact. IMPRESSION: ABOVE
== END | disposition home or self-care (01) ==
LOC: RADCTMAIN 12:12
PROVIDERS: ATTEND Orthopaedic Surgery
DX: Z01.818 Encounter for other preprocedural examination (principal); M17.11 Unilateral primary osteoarthritis, right knee; M25.461 Effusion, right knee; T84.84XD Pain due to internal orthopedic prosthetic devices, implants and grafts, subsequent encounter; E11.9 Type 2 diabetes mellitus without complications; I51.9 Heart disease, unspecified; Z79.01 Long term (current) use of anticoagulants; Z96.641 Presence of right artificial hip joint; Y79.2 Prosthetic and other implants, materials and accessory orthopedic devices associated with adverse incidents

== ENCOUNTER 2023-05-27 10:44 | Observation (INO) | payer MEDICARE ==
[2023-05-20 11:38] VITALS: BMI 29.4
[~2023-05-27 10:44] MED LIST changes: +HYDROmorphone 0.5 MG/0.5 ML SYRINGE IVP PRN; +LIDOCAINE 1% (10MG/ML) FOR IV START INTRADERMA PRN; +TRANEXAMIC 1,000 MG/100ML-NACL 1,000 MG in SALINE 1 100ML.BAG IV PRN; +TRANEXAMIC 1,000 MG/100ML-NACL 1,000 MG in SALINE 1 100ML.BAG IVPB PRN; -TRANEXAMIC ACID 1,000 MG in SODIUM CHLORIDE 0.9% 100 ML IVPB PRN; -VANCOMYCIN 1,000 MG in SODIUM CHLORIDE 0.9% 250 ML IVPB PRN
[2023-05-27 11:41] LABS: Glucose,Whole Blood 118 mg/dL (70-110)
[2023-05-27] MEDS: LACTATED RINGERS 1,000 ML IV SCH ×2 (11:55→13:29)
[2023-05-27] MEDS ORDERED: fentaNYL (PF) 50 MCG/ML 2 ML AMP IVP ONE (12:24)
[2023-05-27] MEDS ORDERED: MIDAZOLAM 2 MG/2 ML VIAL IVP ONE (12:24)
[2023-05-27] MEDS ORDERED: ROPIVACAINE 5 MG/ML 30 ML VIAL ONE (13:28)
[2023-05-27] MEDS ORDERED: SUCCINYLCHOLINE CHLORIDE 200 MG/10 ML VIAL IV ONE (13:28)
[2023-05-27] MEDS ORDERED: fentaNYL (PF) 50 MCG/ML 2 ML AMP ONE (13:28)
[2023-05-27] MEDS ORDERED: GLYCOPYRROLATE 0.2 MG/ML 2 ML VIAL ONE (13:28)
[2023-05-27] MEDS ORDERED: NEOSTIGMINE 1 MG/ML 10 ML VIAL ONE (13:28)
[2023-05-27] MEDS ORDERED: TRANEXAMIC 1,000 MG/100ML-NACL PREMIX BAG ONE (13:28)
[2023-05-27] MEDS ORDERED: SODIUM CHLORIDE 0.9% (PF) 10 ML VIAL ONE (13:28)
[2023-05-27] MEDS ORDERED: PHENYLEPHRINE-0.9% NACL SYG 1,000 MCG/10 ML SYRINGE ONE (13:28)
[2023-05-27] MEDS ORDERED: MIDAZOLAM 2 MG/2 ML VIAL ONE (13:28)
[2023-05-27] MEDS ORDERED: PROPOFOL 10 MG/ML 20 ML VIAL IV ONE (13:28)
[2023-05-27] MEDS ORDERED: LIDOCAINE 1% INJ 10MG/ML (20 ML MDV) ONE (13:28)
[2023-05-27] MEDS ORDERED: ROCURONIUM 10 MG/ML (5 ML VIAL) IV ONE (13:28)
[2023-05-27] MEDS: ROPIVACAINE/EPI/CLONIDINE/KET 50 ML SYRINGE MISCELLANE PRN ×2 (14:09→15:30)
--- NOTE | 2023-05-27 14:40 | P.ANPRN ---
Procedure Note - Anesthesia - Nerve Block Performed Right iPack Single Time Out Performed: Yes (1223) Date of Procedure: 05/27/23 Procedure Start Time: Procedure Stop Time: Location of Patient: PreOp Indication: Acute Post-Operative Pain, Requested by Surgeon Specifically requested for management of pain by DrJuan Luis: Diaz Heard Sedation Type: Sedate with meaningful contact maintained Preparation: Sterile Prep Position: Supine Catheter: None Needle Types: Pajunk Needle Gauge: 21 Ultrasound used to visualize needle placement: Yes Ultrasound used to observe medication spread: Yes Injectate: 0.5% Ropivacaine (see comment for volume) (15cc+ 10cc nacl pf) Blood Aspirated: No Pain Paresthesia on Injection Noted: No Resistance on Injection: Normal Image Stored and Saved: Yes Events: Uneventful and Well Tolerated
--- NOTE | 2023-05-27 14:40 | P.ANPRN ---
Procedure Note - Anesthesia - Nerve Block Performed Right Adductor Canal Single Time Out Performed: Yes (1223) Date of Procedure: 05/27/23 Procedure Start Time: Procedure Stop Time: Location of Patient: PreOp Indication: Acute Post-Operative Pain, Requested by Surgeon Specifically requested for management of pain by DrJuan Luis: Diaz Heard Sedation Type: Sedate with meaningful contact maintained Preparation: Sterile Prep Position: Supine Catheter: None Needle Types: Pajunk Needle Gauge: 21 Ultrasound used to visualize needle placement: Yes Ultrasound used to observe medication spread: Yes Injectate: 0.5% Ropivacaine (see comment for volume) (15cc +10cc nacl) Blood Aspirated: No Pain Paresthesia on Injection Noted: No Resistance on Injection: Normal Image Stored and Saved: Yes Events: Uneventful and Well Tolerated
[2023-05-27] MEDS ORDERED: LACTATED RINGERS 1,000 ML IV ONE (15:00)
[2023-05-27] MEDS ORDERED: diazePAM 5 MG TAB PO PRN (16:18)
[2023-05-27] MEDS ORDERED: ONDANSETRON 4 MG/2 ML VIAL IVP PRN (16:18)
[2023-05-27] MEDS ORDERED: NALOXONE 0.4 MG/ML 1 ML VIAL IV PRN (16:18)
[2023-05-27] MEDS ORDERED: MAGNESIUM HYDROXIDE 2,400 MG/30 ML CUP PO PRN (16:18)
[2023-05-27] MEDS ORDERED: hydrOXYzine pamoate 25 MG CAP PO PRN (16:18)
--- NOTE | 2023-05-27 16:18 | P.OP ---
Date of Procedure: 05/27/23 Preoperative Diagnosis: 1. Severe right knee osteoarthritis 2. Atrial fibrillation 3. Coronary artery disease 4. History of DVT and PE 5. History of prior right femoral neck fracture Postoperative Diagnosis: Same Procedure(s) Performed: 1. Right total knee arthroplasty 2. Computer assisted musculoskeletal navigation using CT/MRI images 3. Application of negative pressure incisional wound VAC right knee <50 sq cm (incision measuring 15-cm) Implants: 1. [place] Triathlon CR Femur Size #5 2. [place] Triathlon Tracy Tibial Base Size #5 with 12x50 stem 3. [place] Triathlon CS poly Size #9 4. [place] Triathlon all poly patella, Size #32 Anesthesia: DAVID, regional Surgeon: Diaz Heard Estimated Blood Loss (ml): 200 IV fluids (ml): 900 Pathology: other (Specimens sent to pathology for gross evaluation) Condition: stable Disposition: PACU Indications for Procedure: I met with the patient preoperatively in the office setting and discussed treatment of their symptomatic knee arthritis. The patient has isolated pain over the medial compartment and has imaging confirming isolated medial compartment arthritis. We discussed the pros and cons of a partial versus total knee replacement. Based on the patient's imaging and clinical exam I think that there are good candidate for a partial medial knee replacement. We discussed the benefits of this compared to conventional total knee replacement including faster recovery and a more normal feeling knee. We discussed the limitations in a partial knee replacement particularly progression of arthritis in the patellofemoral and lateral compartment. The patient understood this and agreed to proceed with a partial knee replacement. I discussed the potential risks and complications at length and gave them ample time to ask questions. Risks discussed included: risks from anesthesia, superficial site surgical infection, acute and/or chronic periprosthetic joint infection, delayed wound healing, drainage, wound necrosis, instability, stiffness, stiffness requiring manipulation and/or revision surgery, progression of arthritis in the patellofemoral and lateral compartment, damage to local blood vessels or nerves, aseptic loosening of the implants, extensor mechanism issues including disruption, patellar maltracking, avascular necrosis etc., continued or worsened knee pain, generalized dissatisfaction with surgical outcome, need for revision surgery, an inability to regain preinjury level of function, DVT, PE, other medical complications, and possibly loss of life or limb. The patient voiced their understanding that while these are the most common complications other less common complications are possible. They provided both their verbal and written consent to go forward with surgery. Operative Findings: The patient had a large hemarthrosis upon making the medial parapatellar arthrotomy. The soft tissue had yellowish brown discoloration consistent with a chronic hemarthrosis. The patient was found to have very poor bone quality in both the distal femur and tibia. It almost had the appearance of avascular necrosis. Bone specimens were sent to pathology for histology. A short 12 x 50 stem was used for the tibia due to the patient's poor bone quality Description of Procedure: The patient was identified in preoperative holding and the correct operative extremity was verified and marked with a marker. I reviewed the consent form with the patient at length. All of their questions were answered. The patient was given a block by anesthesia. They were then brought back to the operating room. They were transferred onto the operating room table where a general anesthetic, preoperative antibiotics, and tranexamic acid were administered by anesthesia. A tourniquet was applied to the proximal aspect of the operative extremity. The contralateral extremity was padded under the heel and secured to the operating room table with a nonsterile blue towel and tape. The ipsilateral arm was carefully draped across the patient's chest and secured with a pillow and foam. A post was applied over the lateral aspect of the ipsilateral thigh and a bolster was placed under the ipsilateral foot. I verified that the operative extremity was stable and the knee was flexed to 90. The operative extremity was then placed in a leg coto, nonsterile drapes were applied, and the extremity was prepped and draped sterilely in the standard sterile fashion. Prior to starting surgery timeout was performed identifying the correct patient, operative extremity, and procedure. The leg was then elevated, exsanguinated with an Esmarch bandage, and the tourniquet was inflated. An anterior midline incision was made sharply with a scalpel. Once I had dissected deep to the superficial fascial layer medial and lateral flaps were elevated. A medial parapatellar arthrotomy was created. Upon opening the knee joint there were diffuse arthritic changes in all 3 compartments. The anterior horn of the medial meniscus were sharply released and a medial release was performed around the posterior medial corner of the knee to facilitate retractor placement. The fat pad was excised with electrocautery. The patella was found to be severely arthritic and a provisional cut was made with a sagittal saw to facilitate mobilization of the extensor mechanism during the procedure. Remnants of the ACL and PCL were then excised from the notch. 4 mm pins were then placed within the incision in the medial distal femur and proximal tibia. Arrays were applied to the pins and I verified they were completely tightened. The knee was then registered with the eYeka robot and manipulations in implant position were made to balance the knee and opitmize implant position. Using the Asif robotic saw all cuts were made in accordance with our plan. After all bony fragments had been removed the cuts were verified with the planar probe. The tibia was then subluxed forward and sized. The knee was brought into flexion and a lamina entertainment production professional was placed to allow removal of the meniscal remnants both medially and laterally as well as posterior osteophytes. Local anesthetic was then infiltrated around the joint capsule. Trial implants were then placed within the knee. Range of motion and collateral ligament tension was then evaluated. Adjustments in implant size and position were then made accordingly. Once the knee was felt to be appropriately balanced the Asif pins were removed. The patella was then recut, sized, and punched. A trial patellar button was then placed. With the trial components in place, the patella tracked midline. The femur was then drilled and the trial component removed. The trial tibial component was then appropriately rotated, pinned, and prepared for the keel. All trial components were then removed from the knee. The knee was thoroughly irrigated with pulsatile lavage. Cement was prepared via vacuum mixing in a bowl on the back table. I then hand pressurized cement into the femur and tibia and placed the implants beginning with the tibial base tray and poly liner, femoral component, and finally the patellar button. All extruded cement was removed including from the pin sites. Once the cement had hardened the knee was evaluated one final time with the final polyethylene liner in place. The knee had full extension and flexion and felt stable to varus and valgus stress throughout the arc of motion. The tourniquet was released and with the tourniquet down the patella tracked midline. All bleeders were controlled with electrocautery. The knee was then soaked for 3 minutes with a dilute Betadine soak. The knee was thoroughly irrigated using 3 L of sterile saline and pulsatile lavage. A deep drain was placed. The extensor mechanism was then reapproximated using pop off Vicryl sutures followed by a running barbed suture. The knee was then closed in layers with a 0 strata fix for the deep fascial layer, 2-0 strata fix for the superficial subcutaneous layer and Monocryl for the skin. A sterile dressing and drain sponge were applied over the drain site and a 20 cm incisional wound VAC was applied over the closed incision. Following application of the wound VAC to the canister there was excellent seal. I verified that all instrument, sponge, and sharp counts were correct. The patient was then transferred off the operating room table, extubated, and brought to recovery having tolerated the procedure well. PLAN: The patient can weight-bear as tolerated on the operative extremity. DVT prophylaxis - will resume Eliquis. Internal medicine for perioperative medical management. Discharge planning - the family would like rehab. Follow-up in the office in 2 weeks for wound check and x-rays of the knee including an AP and lateral.
[2023-05-27 16:23] LABS: Glucose,Whole Blood 163 mg/dL (70-110)
--- NOTE | 2023-05-27 17:08 | XR ---
EXAMINATION TYPE: XR knee limited RT DATE OF EXAM: 05/27/2023 4:37 PM CLINICAL INDICATION:Male, 72 years old with history of Evaluation for Postop abnormality and alignmen t; [facility] COMPARISON: None. TECHNIQUE AND FINDINGS: Two views of the right knee. A total knee arthroplasty is in place, appears intact and normally align ed. No abnormal perihardware lucency or fracture. No significant malalignment. Posterior resurfacing changes of the patella. Soft tissues show no unexpected radiopaque foreign body. Some regional soft t issue gas is present, not unexpected postoperative. Surgical drain terminates in the superior retropa tellar region. IMPRESSION: Status post placement of total knee arthroplasty. No evidence of complication.
[2023-05-27] MEDS: SENNOSIDES-DOCUSATE SODIUM 1 EACH TAB PO SCH (20:43)
[2023-05-27] MEDS: PARoxetine 20 MG TAB PO SCH (20:44)
[2023-05-27] MEDS: FAMOTIDINE 20 MG TAB PO SCH (20:44)
[2023-05-27] MEDS: amLODIPine 5 MG TAB PO SCH (20:44)
[2023-05-27] MEDS: ATORVASTATIN 40 MG TAB PO SCH (20:44)
[2023-05-27] MEDS: HYDROcodone/APAP 5-325MG 1 EACH TAB PO PRN (20:44)
[2023-05-27] MEDS: METOPROLOL TARTRATE 50 MG TAB PO SCH (20:44)
[2023-05-27 21:07] LABS: Glucose,Whole Blood 322 mg/dL (70-110)
[2023-05-27] MEDS ORDERED: DEXTROSE 50% SYRINGE 50 ML IVP PRN ×2 (21:46)
[2023-05-27] MEDS ORDERED: TEMAZEPAM 15 MG CAP PO PRN (22:00)
[2023-05-27] MEDS: INSULIN ASPART (NovoLOG) 100 UNIT/ML VIAL SQ SCH (22:09)
[2023-05-27] MEDS: SODIUM CHLORIDE 0.9% 1,000 ML IV SCH (22:11)
[2023-05-28] MEDS: HYDROcodone/APAP 5-325MG 1 EACH TAB PO PRN (01:22)
--- NOTE | 2023-05-28 01:52 | P.CONS ---
History of Present Illness - Reason for Consult Consult date: 05/27/23 perioperative medical management - Chief Complaint right knee replacement - History of Present Illness 72 year old male with hypertension , DM , Afib on eliquis patient coming in for scheduled right total knee arthroplasty due to advanced degenerative joint disease failed conservative management , and started to affect and limit ADLs. patient tolerated procedure well, no observed immediate post op complications, denies any chest pain or trouble breathing , denies any nausea or vomiting , abd pain , chest pain . pain is well controlled , patient has not walked yet. deneis any smoking , illicit drugs or heavy alcohol review of systems Pertinent positives as noted in HPI. All other systems were reviewed and are negative on exam Constitutional: No acute distress, conversant, pleasant Eyes: Anicteric sclerae, moist conjunctiva, Pupils equal round reactive to light ENMT: NC/AT Oropharynx clear, no erythema, or exudates Neck: Supple, no masses, or JVD No carotid bruits No thyromegaly Lungs: Clear to auscultation Clear to percussion Normal respiratory effort, no accessory muscle use Cardiovascular: Heart regular in rate and rhythm, No murmurs, gallops, or rubs No peripheral edema Abdominal: Soft Nontender, no guarding, rebound or rigidity Abdomen moving with respiration Normoactive bowel sounds No hepatomegaly, No splenomegaly No palpable mass No abdominal wall hernia noted Extremities: right knee wound vac in place No digital cyanosis No clubbing Pedal pulses intact and symmetrical Radial pulses intact and symmetrical No calf tenderness Psychiatric: Alert and oriented to person, place and time Appropriate affect fair judgement Neuro Muscles Strength 5/5 in all 4 extremities with limited exam over right lower extremity due to surgery Sensation to light touch grossly present throughout Cranial nerves II-XII grossly intact Lymphatics: no palpable cervical or supraclavicular lymph nodes Past Medical History Past Medical History: Atrial Fibrillation, Coronary Artery Disease (CAD), Diabetes Mellitus, Deep Vein Thrombosis (DVT), Hyperlipidemia, Hypertension, Osteoarthritis (OA), Sleep Apnea/CPAP/BIPAP Additional Past Medical History / Comment(s): No CPAP use, hx kidney stones, Ty pe 2 Diabetic - diet controlled, hx DVT in right leg after last hip replacement. History of Any Multi-Drug Resistant Organisms: None Reported Past Surgical History: Bariatric Surgery, Cardiac Valve Replacement, Cholecystectomy, Coronary Bypass/CABG, Hernia Repair, Joint Replacement, Orthopedic Surgery Additional Past Surgical History / Comment(s): Mitral valve replacement X2, triple bypass, left nephrostolithotomy and lithotripsy, right hip replacement X2, gastric bypass, right knee arthroscopies, colonoscopies. Past Anesthesia/Blood Transfusion Reactions: No Reported Reaction Smoking Status: Never smoker - Past Family History Mother Family Medical History: Cancer Medications and Allergies Home Medications Medication Instructions Recorded Confirmed Type Apixaban [Eliquis] 5 mg PO BID 06/28/21 05/27/23 History Aspirin [Adult Low Dose Aspirin EC] 81 mg PO DAILY 06/28/21 05/27/23 History Famotidine [Pepcid] 40 mg PO HS 06/28/21 05/27/23 History Ferrous Sulfate [Iron (65 MG 325 mg PO DAILY 06/28/21 05/27/23 History Elemental)] L.acidoph,Paracasei, B.lactis 2 each PO DAILY 06/28/21 05/27/23 History [Probiotic] Metoprolol Tartrate [Lopressor] 50 mg PO BID 06/28/21 05/27/23 History [place]-3 Fatty Acids/Fish Oil [Fish 1 each PO DAILY 06/28/21 05/27/23 History Oil 1,000 mg Softgel] PARoxetine [Paxil] 20 mg PO HS 06/28/21 05/27/23 History Rosuvastatin [Crestor] 20 mg PO HS 06/28/21 05/27/23 History amLODIPine [Norvasc] 5 mg PO HS 06/28/21 05/27/23 History HYDROcodone/APAP 5-325MG [[place] 1 tab PO Q6HR PRN 7 Days #28 tab 07/04/21 05/27/23 Rx 5-325] Omeprazole 40 mg PO DAILY 30 Days #30 cap 07/04/21 05/27/23 Rx Allergies Allergy/AdvReac Type Severity Reaction Status Date / Time No Known Allergies Allergy Verified 05/27/23 11:18 Physical Exam Vitals: Vital Signs Temp Pulse Resp BP Pulse Ox 05/27/23 19:41 98.3 F 78 16 115/72 97 05/27/23 19:26 76 121/73 92 L 05/27/23 19:11 80 136/76 95 05/27/23 18:56 76 144/75 95 05/27/23 18:43 80 110/66 96 05/27/23 18:41 79 118/70 94 L 05/27/23 18:11 82 129/75 97 05/27/23 17:56 80 16 127/76 96 05/27/23 17:41 97.6 F 82 16 143/72 96 05/27/23 17:23 81 12 108/57 95 05/27/23 17:08 83 12 111/53 92 L 05/27/23 16:53 83 12 116/54 94 L 05/27/23 16:38 83 14 122/52 96 05/27/23 16:23 84 16 124/51 96 05/27/23 16:08 97.2 F L 100 16 128/63 95 05/27/23 12:37 64 14 171/74 98 05/27/23 11:47 97.9 F 63 16 165/70 98 Intake and Output 05/27/23 05/27/23 05/28/23 14:59 22:59 06:59 Intake Total 1050 200 Output Total 355 350 Balance 1050 -155 -350 Intake: IV 1050 200 Output: Drainage 75 Right Lateral Knee 75 Urine 350 Straight 350 Estimated Blood Loss 280 Other: Weight 93.5 kg 93.5 kg Results Labs: Abnormal Lab Results - Last 24 Hours (Table) 05/27/23 05/27/23 05/27/23 Range/Units 11:39 16:21 21:05 POC Glucose (mg/dL) 118 H 163 H 322 H (70-110) mg/dL Assessment and Plan Assessment: right knee arthroplasty POD zero pain control and DVT ppx per orthopedic team hypertension controlle d resume home meds metoprolol and amlodipine P. Afib, on eliquis DM dietary controlled insulin sliding scale , tight sugar control to improve wound healing GI PPX on famotidine and PPI stable from medical standpoint check CBC and CMP in am thank you for this consultation
[2023-05-28 06:13] LABS: Glucose,Whole Blood 154 mg/dL (70-110)
[2023-05-28] MEDS: INSULIN ASPART (NovoLOG) 100 UNIT/ML VIAL SQ SCH ×4 (06:30→21:23)
[2023-05-28] MEDS: PANTOPRAZOLE 40 MG TABLET PO SCH (06:31)
--- NOTE | 2023-05-28 07:42 | P.PN ---
Subjective Progress Note Date: 05/28/23 Patient is resting comfortably in his bed. He has no complaints. His pain is well-controlled. His only issue is that he has had difficulty urinating requiring straight catheterization. He states that he has had issues with this in the past. Objective - Vital Signs Vital signs: Vital Signs Temp 97.2 F L 05/28/23 01:15 Pulse 57 L 05/28/23 01:15 Resp 15 05/28/23 01:15 BP 111/63 05/28/23 01:15 Pulse Ox 93 L 05/28/23 01:15 FiO2 Intake & Output 05/27/23 05/28/23 05/28/23 18:59 06:59 18:59 Intake Total 1250 Output Total 280 934 Balance 970 -934 Weight 93.5 kg Intake: IV 1250 Output: Drainage 175 Right Lateral Knee 175 Urine 350 Straight 350 Post Void Residual 409 Estimated Blood Loss 280 - Exam Patient is sitting in his bed comfortably. He is alert and able to answer questions. A focused examination of the right lower extremity was conducted. On inspection he has an intact incisional wound VAC with good seal. His Hemovac drain is in place and the dressing over the drain site is saturated with blood. This was carefully taken down and the drain removed without difficulty. A new dressing was applied over the drain site. His thigh and calf are soft. He has a palpable dorsalis pedis pulse. His foot is warm and well-perfused brisk capillary refill. Motor and sensory function are intact. - Labs Labs: Abnormal Lab Results - Last 24 Hours (Table) 05/27/23 05/27/23 05/27/23 Range/Units 11:39 16:21 21:05 POC Glucose (mg/dL) 118 H 163 H 322 H (70-110) mg/dL 05/28/23 Range/Units 06:12 POC Glucose (mg/dL) 154 H (70-110) mg/dL Assessment and Plan Assessment: Postoperative day #1 status post right total knee replacement and incisional wound VAC Multiple medical problems Postoperative urinary retention Plan: 1. Weight-bear as tolerated right lower extremity, up with assistance of a walker 2. 2 doses of postoperative antibiotics and home on low-dose oral antibiotics given his multiple risk factors 3. DVT prophylaxis - Resume Eliquis 5 mg BID 4. Incisional wound VAC in place. Reinforce drain site as needed 5. Appreciate internal medicine's assistance with preoperative medical management 6. Physical therapy for gait training 7. Will monitor urinary retention and follow-up protocol, possibly requiring [place] catheter and urology consult 8. Dispo: Due to the patient's multiple medical problems he may ultimately require discharge to rehab. Discharge planning is in process.
[2023-05-28] MEDS: APIXABAN 5 MG TAB PO SCH ×2 (08:40→21:24)
[2023-05-28] MEDS: HYDROcodone/APAP 10-325MG 1 EACH TAB PO PRN ×2 (08:40→16:44)
[2023-05-28] MEDS: METOPROLOL TARTRATE 50 MG TAB PO SCH ×2 (08:40→21:57)
[2023-05-28] MEDS: LACTATED RINGERS 1,000 ML IV SCH (09:48)
[2023-05-28] MEDS: SODIUM CHLORIDE 0.9% 1,000 ML IV SCH ×2 (09:48→11:17)
[2023-05-28] MEDS: HYDROmorphone 0.5 MG/0.5 ML SYRINGE IVP PRN ×3 (10:44→21:29)
[2023-05-28 10:58] LABS: Basophils # (A) 0.02 X 10*3/uL (0.00-0.10); Basophils % (A) 0.2 %; Eosinophils # (A) 0 X 10*3/uL (0.04-0.35); Eosinophils % (A) 0 %; HCT 37.8 % (37.2-50.0); HGB 12.3 g/dL (12.0-17.0); Lymphocytes # (A) 1.28 X 10*3/uL (0.90-5.00); Lymphocytes % (A) 9.7 %; MCH 29.6 pg (27.0-32.0); MCHC 32.5 g/dL (32.0-37.0); MCV 91.1 FL (80.0-97.0); Mean Platelet Volume 11.2 FL (9.5-12.2); Monocytes # (A) 1.01 X 10*3/uL (0.20-1.00); Monocytes % (A) 7.7 %; NRBC Per 100 WBC 0 X 10*3/uL (0.00-0.01); Neutrophils # (A) 10.81 X 10*3/uL (1.80-7.70); Neutrophils % (A) 82.1 %; Platelet Count 105 X 10*3/uL (140-440); RBC 4.15 X 10*6/uL (4.10-5.60); RDW 12.9 % (11.5-14.5); WBC 13.16 X 10*3/uL (4.50-10.00)
[2023-05-28 11:07] LABS: Glucose,Whole Blood 148 mg/dL (70-110)
[2023-05-28 11:15] LABS: ALT 36 U/L (8-49); AST 42 U/L (13-35); Albumin 3.7 g/dL (3.8-4.9); Albumin/Globulin Ratio 1.85 Ratio (1.60-3.17); Alkaline Phosphatase 71 U/L (41-126); BUN/Creat Ratio 13.68 Ratio (12.00-20.00); Calcium 8.6 mg/dL (8.7-10.3); Carbon Dioxide 19.6 mmol/L (21.6-31.8); Chloride 105 mmol/L (96-109); Glucose 142 mg/dL (70-110); Potassium 4.8 mmol/L (3.5-5.5); Sodium 137 mmol/L (135-145); Total Bilirubin 0.7 mg/dL (0.3-1.2); Total Protein 5.7 g/dL (6.2-8.2)
--- NOTE | 2023-05-28 15:05 | P.PN ---
Subjective Progress Note Date: 05/28/23 Hospital course: Patient is a very pleasant 72-year-old male with a past medical history of CAD status post CABG 3, bioprosthetic mitral valve replacement, atrial fibrillation with previous DVTs on anticoagulation with Eliquis, hypertension, hyperlipidemia, chronic kidney disease stage IIIB and diabetes mellitus. He is currently admitted under orthopedic surgery team status post right total knee arthroplasty with application of negative pressure incisional wound VAC secondary to severe right knee osteoarthritis. We were consulted for medical management throughout patient's hospitalization. Physical exam: Patient seen and fully evaluated at bedside this morning. Patient reports only mild pain this morning. He denies having any postoperative nausea or vomiting and denies any other complaints including headache, lightheadedness, dizziness, chest pain, palpitations, or experiencing any numbness or tingling in his extremities. Vital signs reviewed and stable. General: Nontoxic, no distress and appears stated age. Derm: Skin warm and dry, normal coloration for ethnicity. Head: Atraumatic, normocephalic and symmetric. Eyes: EOMs intact, no lid lag, and anicteric sclera Mouth: no lip lesions, mucus membranes moist Cardiovascular: regular rate and rhythm with normal S1S2, systolic murmur, positive posterior tibial pulses bilaterally, and cap refill < 2 seconds. Lungs: Respirations even, regular, and unlabored on room air. Lungs CTA bilaterally, no rhonchi, no rales, no wheezing, and no accessory muscle usage. Abdominal: soft, nontender to palpation, no guarding, no appreciable organomegaly Ext: No gross muscle atrophy, no edema, no contractures. Movement and sensation intact. Neuro: Speech clear, face symmetrical and CN II-XII grossly intact with no noted focal neuro deficits Psych: Alert and oriented to person, place, time, and situation. Appropriate and pleasant affect. Assessment and Plan of Care: Acute kidney injury on stage III chronic kidney disease BUN 26.0, creatinine 1.9, and GFR of 37. Baseline creatinine 1.6. Avoid nephrotoxic medications and continue patient on 0.9% normal saline at 100 mL per hour. Order placed for RN communication to monitor closely for post void residuals and order placed for bladder scan as needed. Order placed for repeat morning BMP to follow up and monitor for improvement/resolution of elevated renal function. Status post right total knee arthroplasty Management by primary admitting orthopedic surgery team including DVT prophylaxis, pain management, wound/dressing/wound VAC care, weightbearing, and PT/OT. Per primary admitting orthopedic surgery team, patient was placed back on his home anticoagulant with Eliquis 5 mg twice daily. Postoperative leukocytosis, expected finding. Leukocytosis is reactive secondary to surgical procedure. No signs of infection. Thrombocytopenia, unclear patient has history of thrombocytopenia possibly secondary to long-term use of anticoagulants along with daily aspirin. CAD status post CABG 3 History of bioprosthetic mitral valve replacement 2 Infectious no atrial fibrillation History of DVTs Hypertension Hyperlipidemia Patient to continue daily medication regimen with Eliquis 5 mg twice daily, amlodipine 5 mg nightly, metoprolol 50 mg twice daily, and rosuvastatin 20 mg nightly. Type 2 diabetes mellitus Status post bariatric surgery patient reports diabetes is diet controlled. Hemoglobin A1c 6.3%. Data reviewed: Postoperative labs reviewed. CBC showing mild postoperative leukocytosis with WBC count of 13.16 and Thrombocytopenia with platelet count of 105. BMP showing acute kidney injury with BUN of 26, creatinine 1.9, and GFR of 37. Also revealing high anion gap metabolic acidosis with chloride of 105, bicarb 19.6, and anion gap of 12.40. Patient to continue with IV fluid hydration and 0.9% normal saline at 100 mL per hour. Vital signs reviewed and stable. Blood pressure 129/71, heart rate 71, respiratory rate 17, temp 98.1F, SpO2 of 94% on room air. Thank you for allowing us to participate in the care of this pleasant patient. Do not hesitate to contact us with questions. Someone can be reached from the [facility] hospitalist group all hours of the day at [phone] or via perfect serve. Patient was seen independently by Nurse Pracitioner. This document was prepared using [employer] dictation software. Please allow for errors in zinc etcher, while rare they do occur. Objective - Vital Signs Vital signs: Vital Signs Temp 98.1 F 05/28/23 07:43 Pulse 71 05/28/23 07:43 Resp 17 05/28/23 07:43 BP 129/71 05/28/23 07:43 Pulse Ox 94 L 05/28/23 07:43 FiO2 Intake & Output 05/27/23 05/28/23 05/28/23 18:59 06:59 18:59 Intake Total 1250 Output Total 280 934 Balance 970 -934 Weight 93.5 kg Intake: IV 1250 Output: Drainage 175 Right Lateral Knee 175 Urine 350 Straight 350 Post Void Residual 409 Estimated Blood Loss 280 - Labs CBC & Chem 7: 05/28/23 05:25 05/28/23 05:25 Labs: Abnormal Lab Results - Last 24 Hours (Table) 05/27/23 05/27/23 05/27/23 Range/Units 11:39 16:21 21:05 POC Glucose (mg/dL) 118 H 163 H 322 H (70-110) mg/dL 05/28/23 Range/Units 06:12 POC Glucose (mg/dL) 154 H (70-110) mg/dL
[2023-05-28 16:53] LABS: Glucose,Whole Blood 205 mg/dL (70-110)
[2023-05-28 20:41] LABS: Glucose,Whole Blood 128 mg/dL (70-110)
[2023-05-28] MEDS: PARoxetine 20 MG TAB PO SCH (21:23)
[2023-05-28] MEDS: SENNOSIDES-DOCUSATE SODIUM 1 EACH TAB PO SCH (21:23)
[2023-05-28] MEDS: FAMOTIDINE 20 MG TAB PO SCH (21:23)
[2023-05-28] MEDS: ATORVASTATIN 40 MG TAB PO SCH (21:24)
[2023-05-28] MEDS: amLODIPine 5 MG TAB PO SCH (21:24)
[2023-05-29 01:06] VITALS: TEMP 98
[2023-05-29] MEDS: SODIUM CHLORIDE 0.9% 1,000 ML IV SCH ×2 (01:53→11:05)
[2023-05-29] MEDS: HYDROcodone/APAP 10-325MG 1 EACH TAB PO PRN (02:05)
[2023-05-29] MEDS: LACTATED RINGERS 1,000 ML IV SCH (05:57)
[2023-05-29 06:10] LABS: Glucose,Whole Blood 153 mg/dL (70-110)
[2023-05-29] MEDS: PANTOPRAZOLE 40 MG TABLET PO SCH (06:56)
[2023-05-29] MEDS: INSULIN ASPART (NovoLOG) 100 UNIT/ML VIAL SQ SCH (06:56)
[2023-05-29 08:46] LABS: HCT 36.7 % (37.2-50.0); HGB 12.1 g/dL (12.0-17.0); MCH 30.3 pg (27.0-32.0); MCV 91.8 FL (80.0-97.0); Mean Platelet Volume 11.2 FL (9.5-12.2); NRBC Per 100 WBC 0 X 10*3/uL (0.00-0.01); Platelet Count 103 X 10*3/uL (140-440); RDW 13.1 % (11.5-14.5); WBC 10.08 X 10*3/uL (4.50-10.00)
--- NOTE | 2023-05-29 08:48 | P.DS ---
Providers Date of admission: 05/28/23 13:46 Attending physician: Diaz Heard Consults: 05/27/23 16:18 Consult Physician Routine Consulting Provider: Jodi Mauricio Consult Reason/Comments: post op medical management Do you want consulting provider notified?: Yes Primary care physician: Stated None Hospital Course: The patient is a very pleasant 72-year-old male with multiple medical problems was admitted under my care on 05/27/2023. He underwent an uncomplicated knee replacement. He was transferred to the orthopedic floor following surgery. He received 2 doses of postoperative antibiotics. His Hemovac drain was pulled on postoperative day #1. Internal medicine assisted with perioperative medical management. The patient worked with physical therapy and did well. He was ultimately cleared for discharge home on postoperative day #2. Plan - Discharge Summary Discharge Rx Participant: Yes New Discharge Prescriptions: New Doxycycline Monohydrate 100 mg PO BID #30 cap HYDROcodone/APAP 5-325MG [[place] 5-325] 1 - 2 tab PO Q6HR PRN #32 tab PRN Reason: Pain Docusate [Colace] 100 mg PO BID #28 capsule No Action Famotidine [Pepcid] 40 mg PO HS PARoxetine [Paxil] 20 mg PO HS Metoprolol Tartrate [Lopressor] 50 mg PO BID Apixaban [Eliquis] 5 mg PO BID [place]-3 Fatty Acids/Fish Oil [Fish Oil 1,000 mg Softgel] 1 each PO DAILY L.acidoph,Paracasei, B.lactis [Probiotic] 2 each PO DAILY Aspirin [Adult Low Dose Aspirin EC] 81 mg PO DAILY HYDROcodone/APAP 5-325MG [[place] 5-325] 1 tab PO Q6HR PRN 7 Days #28 tab PRN Reason: Pain amLODIPine [Norvasc] 5 mg PO HS Ferrous Sulfate [Iron (65 MG Elemental)] 325 mg PO DAILY Rosuvastatin [Crestor] 20 mg PO HS Omeprazole 40 mg PO DAILY 30 Days #30 cap Discharge Medication List Apixaban [Eliquis] 5 mg PO BID 06/28/21 [History] Aspirin [Adult Low Dose Aspirin EC] 81 mg PO DAILY 06/28/21 [History] Famotidine [Pepcid] 40 mg PO HS 06/28/21 [History] Ferrous Sulfate [Iron (65 MG Elemental)] 325 mg PO DAILY 06/28/21 [History] L.acidoph,Paracasei, B.lactis [Probiotic] 2 each PO DAILY 06/28/21 [History] Metoprolol Tartrate [Lopressor] 50 mg PO BID 06/28/21 [History] [place]-3 Fatty Acids/Fish Oil [Fish Oil 1,000 mg Softgel] 1 each PO DAILY 06/28/21 [History] PARoxetine [Paxil] 20 mg PO HS 06/28/21 [History] Rosuvastatin [Crestor] 20 mg PO HS 06/28/21 [History] amLODIPine [Norvasc] 5 mg PO HS 06/28/21 [History] HYDROcodone/APAP 5-325MG [[place] 5-325] 1 tab PO Q6HR PRN 7 Days #28 tab 07/04/21 [Rx] Omeprazole 40 mg PO DAILY 30 Days #30 cap 07/04/21 [Rx] Docusate [Colace] 100 mg PO BID #28 capsule 05/29/23 [Rx] Doxycycline Monohydrate 100 mg PO BID #30 cap 05/29/23 [Rx] HYDROcodone/APAP 5-325MG [[place] 5-325] 1 - 2 tab PO Q6HR PRN #32 tab 05/29/23 [Rx] Follow up Appointment(s)/Referral(s): [facility] [NON-STA[facility]] - 1-2 Days ([facility] will call you to schedule your in home physical therapy visits.) Diaz Heard MD [Medical Doctor] - 06/08/23 1:05 pm Activity/Diet/Wound Care/Special Instructions: 1. Weight-bear as tolerated on your operative extremity unless instructed otherwise. Use a walker or other assistive device to ambulate. 2. Leave surgical dressing in place. If your dressing becomes saturated with blood, there is drainage, or the dressing becomes loose please contact the office. 3. It is okay to shower with your surgical dressing, but do not submerge in water (no hot tubs, bath's, swimming etc.) 4. Make sure to take her blood clot prevention medication as prescribed (aspirin, Eliquis, Xarelto, and Plavix are commonly prescribed medications for blood clot prevention) 5. While taking [place] or Percocet for pain make sure you're taking a stool softener (Colace) and drink lots of water. 6. Keep all follow-up appointments as scheduled. You will usually be seen in 1-2 weeks following surgery. 7. Please contact the office with any questions or concerns [phone] Discharge Disposition: HOME SELF-CARE
[2023-05-29] MEDS ORDERED: FERROUS SULFATE 325 MG TAB PO SCH (09:00)
[2023-05-29] MEDS: METOPROLOL TARTRATE 50 MG TAB PO SCH (09:50)
[2023-05-29] MEDS: APIXABAN 5 MG TAB PO SCH (09:50)
[2023-05-29 09:55] VITALS: BP 132/69; PULSE 69; RESP 18
[2023-05-29 11:28] LABS: ALT 26 U/L (4-49); AST 43 U/L (17-59); African American GFR (CKD) 41 (>60 ml/min/1.73 sqM); Albumin 3.5 g/dL (3.5-5.0); Albumin/Globulin Ratio 1.3; Alkaline Phosphatase 72 U/L (38-126); Anion Gap 12 mmol/L; Blood Urea Nitrogen 32 mg/dL (9-20); Calcium 8.2 mg/dL (8.4-10.2); Carbon Dioxide 20 mmol/L (22-30); Chloride 105 mmol/L (98-107); Globulin 2.6 g/dL; Glucose 144 mg/dL (74-99); Non-African American GFR(CKD) 36 (>60 ml/min/1.73 sqM); Potassium 4.2 mmol/L (3.5-5.1); Sodium 137 mmol/L (137-145); Total Bilirubin 1.2 mg/dL (0.2-1.3); Total Protein 6.1 g/dL (6.3-8.2)
--- NOTE | 2023-05-29 11:49 | P.PN ---
Subjective Progress Note Date: 05/29/23 Hospital course: Patient is a very pleasant 72-year-old male with a past medical history of CAD status post CABG 3, bioprosthetic mitral valve replacement, atrial fibrillation with previous DVTs on anticoagulation with Eliquis, hypertension, hyperlipidemia, chronic kidney disease stage IIIB and diabetes mellitus. He is currently admitted under orthopedic surgery team status post right total knee arthroplasty with application of negative pressure incisional wound VAC secondary to severe right knee osteoarthritis. We were consulted for medical management throughout patient's hospitalization. Physical exam: Patient seen and fully evaluated at bedside this morning. Patient is sitting up in a chair with at bedside. Patient reports that he is ready to go home. Vital signs reviewed and stable. General: Nontoxic, no distress and appears stated age. Derm: Skin warm and dry, normal coloration for ethnicity. Head: Atraumatic, normocephalic and symmetric. Eyes: EOMs intact, no lid lag, and anicteric sclera Mouth: no lip lesions, mucus membranes moist Cardiovascular: regular rate and rhythm with normal S1S2, systolic murmur, positive posterior tibial pulses bilaterally, and cap refill < 2 seconds. Lungs: Respirations even, regular, and unlabored on room air. Lungs CTA bilaterally, no rhonchi, no rales, no wheezing, and no accessory muscle usage. Abdominal: soft, nontender to palpation, no guarding, no appreciable organomegaly Ext: No gross muscle atrophy, no edema, no contractures. Movement and sensation intact. Neuro: Speech clear, face symmetrical and CN II-XII grossly intact with no noted focal neuro deficits Psych: Alert and oriented to person, place, time, and situation. Appropriate and pleasant affect. Assessment and Plan of Care: Acute kidney injury on Chronic kidney disease stage IIIb, improved and stable. BUN 32, creatinine 1.86, GFR 36. Baseline creatinine 1.6-1.7 Avoid nephrotoxic medications and continue patient on 0.9% normal saline at 100 mL per hour. Order placed for RN communication to monitor closely for post void residuals and order placed for bladder scan as needed. Patient encouraged to follow up outpatient with PCP for long-term close monitoring of renal function and chronic kidney disease stage IIIB. Status post right total knee arthroplasty Management by primary admitting orthopedic surgery team including DVT prophylaxis, pain management, wound/dressing/wound VAC care, weightbearing, and PT/OT. Per primary admitting orthopedic surgery team, patient was placed back on his home anticoagulant with Eliquis 5 mg twice daily. Postoperative leukocytosis, expected finding. Leukocytosis is reactive secondary to surgical procedure. No signs of infection. Thrombocytopenia, unclear patient has history of thrombocytopenia possibly secondary to long-term use of anticoagulants along with daily aspirin. CAD status post CABG 3 History of bioprosthetic mitral valve replacement 2 Infectious no atrial fibrillation History of DVTs Hypertension Hyperlipidemia Patient to continue daily medication regimen with Eliquis 5 mg twice daily, amlodipine 5 mg nightly, metoprolol 50 mg twice daily, and rosuvastatin 20 mg nightly. Type 2 diabetes mellitus Status post bariatric surgery patient reports diabetes is diet controlled. Hemoglobin A1c 6.3%. Data reviewed: Morning labs completed and reviewed. CBC showing leukocytosis with WBC count of 10.08, stable hemoglobin of 12.1, and persistent mild thrombocytopenia with platelet count of 103. BMP consistent with stage IIIc EKG showing persistently elevated but stable renal function with BUN of 32, creatinine 1.86, and GFR 36 with baseline creatinine ranging between 1.6 and 1.7. Vital signs reviewed and stable. Blood pressure 132/69, heart rate 69, respiratory rate 18, and temp 98.0F with SpO2 of 94% on room air. Thank you for allowing us to participate in the care of this pleasant patient. Do not hesitate to contact us with questions. Someone can be reached from the [facility] hospitalist group all hours of the day at [phone] or via perfect serve. Patient was seen independently by Nurse Pracitioner. This document was prepared using [employer] dictation software. Please allow for errors in client consultant, while rare they do occur. Rafael Baer NP rendered care for this patient independently, reviewed the findings and plan as documented in the note above. I did not physically speak with or examine the patient on this date. Objective - Vital Signs Vital signs: Vital Signs Temp 98.0 F 05/29/23 00:06 Pulse 88 05/29/23 00:06 Resp 15 05/29/23 00:06 BP 105/62 05/29/23 00:06 Pulse Ox 91 L 05/29/23 00:06 FiO2 Intake & Output 05/28/23 05/29/23 05/29/23 18:59 06:59 18:59 Other: Voiding Method Toilet # Voids 3 1 - Labs CBC & Chem 7: 05/29/23 05:50 05/29/23 10:49 Labs: Abnormal Lab Results - Last 24 Hours (Table) 05/28/23 05/28/23 05/28/23 Range/Units 05:25 05:25 05:25 WBC 13.16 H (4.50-10.00) X 10*3/uL RBC (4.10-5.60) X 10*6/uL Hct (37.2-50.0) % Plt Count 105 L (140-440) X 10*3/uL Neutrophils # 10.81 H (1.80-7.70) X 10*3/uL Monocytes # 1.01 H (0.20-1.00) X 10*3/uL Eosinophils # 0 L (0.04-0.35) X 10*3/uL Carbon Dioxide 19.6 L (21.6-31.8) mmol/L Anion Gap 12.40 H (4.00-12.00) mmol/L Creatinine 1.9 H (0.6-1.5) mg/dL Est GFR (CKD-EPI) 37 L (>=60) Glucose 142 H (70-110) mg/dL POC Glucose (mg/dL) (70-110) mg/dL Hemoglobin A1c 6.3 H (<=6.0) % Calcium 8.6 L (8.7-10.3) mg/dL AST 42 H (13-35) U/L Total Protein 5.7 L (6.2-8.2) g/dL Albumin 3.7 L (3.8-4.9) g/dL 05/28/23 05/28/23 05/28/23 Range/Units 11:06 16:51 20:39 WBC (4.50-10.00) X 10*3/uL RBC (4.10-5.60) X 10*6/uL Hct (37.2-50.0) % Plt Count (140-440) X 10*3/uL Neutrophils # (1.80-7.70) X 10*3/uL Monocytes # (0.20-1.00) X 10*3/uL Eosinophils # (0.04-0.35) X 10*3/uL Carbon Dioxide (21.6-31.8) mmol/L Anion Gap (4.00-12.00) mmol/L Creatinine (0.6-1.5) mg/dL Est GFR (CKD-EPI) (>=60) Glucose (70-110) mg/dL POC Glucose (mg/dL) 148 H 205 H 128 H (70-110) mg/dL Hemoglobin A1c (<=6.0) % Calcium (8.7-10.3) mg/dL AST (13-35) U/L Total Protein (6.2-8.2) g/dL Albumin (3.8-4.9) g/dL 05/29/23 05/29/23 Range/Units 05:50 06:08 WBC 10.08 H (4.50-10.00) X 10*3/uL RBC 4.00 L (4.10-5.60) X 10*6/uL Hct 36.7 L (37.2-50.0) % Plt Count 103 L (140-440) X 10*3/uL Neutrophils # (1.80-7.70) X 10*3/uL Monocytes # (0.20-1.00) X 10*3/uL Eosinophils # (0.04-0.35) X 10*3/uL Carbon Dioxide (21.6-31.8) mmol/L Anion Gap (4.00-12.00) mmol/L Creatinine (0.6-1.5) mg/dL Est GFR (CKD-EPI) (>=60) Glucose (70-110) mg/dL POC Glucose (mg/dL) 153 H (70-110) mg/dL Hemoglobin A1c (<=6.0) % Calcium (8.7-10.3) mg/dL AST (13-35) U/L Total Protein (6.2-8.2) g/dL Albumin (3.8-4.9) g/dL
[2023-05-29 12:03] LABS: ALT 28 U/L (8-49); AST 39 U/L (13-35); Albumin 3.9 g/dL (3.8-4.9); Albumin/Globulin Ratio 1.86 Ratio (1.60-3.17); Alkaline Phosphatase 69 U/L (41-126); BUN/Creat Ratio 15.68 Ratio (12.00-20.00); Blood Urea Nitrogen 29.8 mg/dL (9.0-27.0); Calcium 8.7 mg/dL (8.7-10.3); Carbon Dioxide 19.1 mmol/L (21.6-31.8); Chloride 107 mmol/L (96-109); Globulin 2.1 g/dL (1.6-3.3); Glucose 134 mg/dL (70-110); Potassium 4.4 mmol/L (3.5-5.5); Sodium 139 mmol/L (135-145); Total Bilirubin 0.9 mg/dL (0.3-1.2)
== END 2023-05-29 11:54 | disposition home health service (06) ==
LOC: OR 10:44 → 4SSUR 15:55 → OR 05-28 13:46 → 4SSUR 05-28 13:46
PROVIDERS: ADMIT Orthopaedic Surgery; ATTEND Orthopaedic Surgery
DX: M17.11 Unilateral primary osteoarthritis, right knee (principal); I48.91 Unspecified atrial fibrillation; I25.10 Atherosclerotic heart disease of native coronary artery without angina pectoris; R33.9 Retention of urine, unspecified; I12.9 Hypertensive chronic kidney disease with stage 1 through stage 4 chronic kidney disease, or unspecified chronic kidney disease; N18.32 Chronic kidney disease, stage 3b; E11.22 Type 2 diabetes mellitus with diabetic chronic kidney disease; N17.9 Acute kidney failure, unspecified; D69.6 Thrombocytopenia, unspecified; E87.20 Acidosis, unspecified; E78.5 Hyperlipidemia, unspecified; M19.90 Unspecified osteoarthritis, unspecified site; G47.30 Sleep apnea, unspecified; Z90.49 Acquired absence of other specified parts of digestive tract; Z86.711 Personal history of pulmonary embolism; Z86.718 Personal history of other venous thrombosis and embolism; Z95.1 Presence of aortocoronary bypass graft; Z95.3 Presence of xenogenic heart valve; Z87.442 Personal history of urinary calculi; Z98.84 Bariatric surgery status; Z96.641 Presence of right artificial hip joint; Z79.01 Long term (current) use of anticoagulants; Z79.82 Long term (current) use of aspirin; Z79.899 Other long term (current) drug therapy; Z80.9 Family history of malignant neoplasm, unspecified
CPT/HCPCS: 0055T; 27447; 64447; 64999; 80053; 83036; 85025; 85027; 88305; 88311